=== PATIENT | female | born 1965 | race Caucasian/White ===

== ENCOUNTER 2023-06-08 18:51 | Inpatient (IN) | payer OTHER ==
[2023-06-08] MEDS ORDERED: methylPREDNISolone SOD SUCCIN 1,000 MG in SODIUM CHLORIDE 0.9% 250 ML IVPB STA (19:21)
--- NOTE | 2023-06-08 19:25 | ED ---
General Adult HPI - General Chief complaint: Headache Stated complaint: Jaw pain,Headache, Vision changes Time Seen by Provider: 06/08/23 19:00 Source: patient, RN notes reviewed, old records reviewed Mode of arrival: ambulatory Limitations: no limitations - History of Present Illness Initial comments: 58-year-old female presents for evaluation of headache which is bilateral but worse on the left. Patient had been diagnosed with giant cell arteritis by her boot trimmer Dr. Sheppard, she had an ESR of 1:30 as an outpatient. She received [facility] Thursday of last week 1 g each day according to the patient. She states that this immediately improved all of her symptoms. She states over the weekend her symptoms have worsened again she contacted the boot trimmer office who requested she present to the emergency room for evaluation and further steroid treatment. She has not had biopsy but had symptoms that were highly suggestive of temporal arteritis as well as a ESR greater than 100. She had jaw claudication, vision loss in and severe temporal headache. She also had bilateral upper extremity weakness many of these symptoms have been ongoing for some time. - Related Data Home Medications Medication Instructions Recorded Confirmed Dextroamphetamine/Amphetamine 60 mg PO DAILY 06/03/23 06/04/23 [Adderall] LORazepam [Ativan] 0.5 mg PO HS 06/03/23 06/04/23 Metoprolol Tartrate 25 mg PO DAILY 06/03/23 06/04/23 Omeprazole [PriLOSEC] 40 mg PO DAILY 06/03/23 06/04/23 Zolpidem [Ambien] 10 mg PO HS 06/03/23 06/04/23 ondansetron HCL [Ondansetron HCl] 8 mg PO DAILY 06/03/23 06/04/23 Allergies Allergy/AdvReac Type Severity Reaction Status Date / Time gabapentin Allergy Anaphylaxis Verified 06/08/23 19:00 [id number] Reductase Allergy Rash/Hives Verified 06/08/23 19:00 Inhibitor valproic acid [From Depakene] Allergy Anaphylaxis Verified 06/08/23 19:00 Review of Systems ROS Statement: Those systems with pertinent positive or pertinent negative responses have been documented in the HPI. ROS Other: All systems not noted in ROS Statement are negative. Past Medical History Smoking Status: Current some day smoker General Exam Limitations: no limitations General appearance: alert, in no apparent distress Head exam: Present: atraumatic, normocephalic Eye exam: Present: normal appearance, PERRL ENT exam: Present: normal exam Neck exam: Present: normal inspection. Absent: tenderness Respiratory exam: Present: normal lung sounds bilaterally. Absent: respiratory distress Cardiovascular Exam: Present: regular rate, normal rhythm GI/Abdominal exam: Present: soft. Absent: distended, tenderness Extremities exam: Present: normal inspection, normal capillary refill Neurological exam: Present: alert, oriented X3, CN II-XII intact. Absent: motor sensory deficit Psychiatric exam: Present: normal mood, flat affect Skin exam: Present: warm, dry, intact. Absent: cyanosis, diaphoretic Course Vital Signs 06/08/23 18:57 Temperature 98.3 F Pulse Rate 94 Respiratory 18 Rate Blood Pressure 183/122 O2 Sat by Pulse 100 Oximetry Medical Decision Making - Medical Decision Making Was pt. sent in by a medical professional or institution (, PA, CIRCULATION SALES REPRESENTATIVE, urgent care, hospital, or long term...) When possible be specific @ -[Sent In by Dr. Sheppard, ophthalmology Did you speak to anyone other than the patient for history (EMS, parent, family, police, friend...)? What history was obtained from this source @ -No Did you review nursing and triage notes (agree or disagree)? Why? @ -I reviewed and agree with nursing and triage notes Were old charts reviewed (outside hosp., previous admission, EMS record, old EKG, old radiological studies, urgent care reports/EKG's, long term records)? Report findings @ -No old charts were reviewed Differential Diagnosis (chest pain, altered mental status, abdominal pain women, abdominal pain men, vaginal bleeding, weakness, fever, dyspnea, syncope, headache, dizziness, GI bleed, back pain, seizure, CVA, palpatations, mental health, musculoskeletal)? @ -Differential Headache: Migraine, tension, cluster, carbon monoxide, central venous thrombosis, temporal arteritis, acute closure glaucoma, intracranial hemorrhage, mastoiditis, sinusitis, head injury, this is not meant to be an all-inclusive list. EKG interpreted by me (3pts min.). @ -Sinus rhythm rate of 72, LA interval 173, QRS duration 94, QTC [address] segment elevation. X-rays interpreted by me (1pt min.). @ -None done CT interpreted by me (1pt min.). @ -CT brain negative for intracranial hemorrhage or mass effect U/S interpreted by me (1pt. min.). @ -None done What testing was considered but not performed or refused? (CT, X-rays, U/S, labs)? Why? @ -None What meds were considered but not given or refused? Why? @ -None Did you discuss the management of the patient with other professionals (professionals i.e. , PA, CIRCULATION SALES REPRESENTATIVE, lab, RT, psych nurse, healthcare social worker, nonfarm animal caretaker, teacher, neighborhood conservation officer, gearcase assembler)? Give summary @ -Case discussed with Dr. Mcdowell Was smoking cessation discussed for >3mins.? @ -No Was critical care preformed (if so, how long)? @ -No Were there social determinants of health that impacted care today? How? (Homelessness, low income, unemployed, alcoholism, drug addiction, transportation, low edu. Level, literacy, decrease access to med. care, correction, rehab)? @ -No Was there de-escalation of care discussed even if they declined (Discuss DNR or withdrawal of care, Hospice)? DNR status @ -No What co-morbidities impacted this encounter? (DM, HTN, Smoking, COPD, CAD, Can cer, CVA, ARF, Chemo, Hep., AIDS, mental health diagnosis, sleep apnea, morbid obesity)? @ -Hypertension Was patient admitted / discharged? Hospital course, mention meds given and route, prescriptions, significant lab abnormalities, going to OR and other pertinent info. @ 58-year-old female presenting for evaluation of temporal headache, jaw claudication, concern for temporal arteritis. Patient had been treated as an outpatient with high-dose IV steroids and had complete resolution in her symptoms and then began to have rebound symptoms over the past 3 days. She was sent in by her boot trimmer for continued IV steroids. I did repeat laboratory tests including CBC, CMP, CRP, ESR. Results are pending. High-dose steroids are initiated emergency department. She'll be admitted to internal medicine with vascular surgery on consult for evaluation. Undiagnosed new problem with uncertain prognosis? @ -No Drug Therapy requiring intensive monitoring for toxicity (Heparin, Nitro, Insulin, Cardizem)? @ -No Were any procedures done? @ -No Diagnosis/symptom? @ -[Headache, concern for temporal arteritis Acute, or Chronic, or Acute on Chronic? @ -Chronic Uncomplicated (without systemic symptoms) or Complicated (systemic symptoms)? @ -default Side effects of treatment? @ -No Exacerbation, Progression, or Severe Exacerbation? @ -No Poses a threat to life or bodily function? How? (Chest pain, [place], [place], pneumonia, PE, COPD, DKA, ARF, appy, cholecystitis, CVA, Diverticulitis, Homicidal, Suicidal, threat to staff... and all critical care pts) @ -[Yes, vision loss - Lab Data Result diagrams: 06/08/23 19:36 Lab Results 06/08/23 Range/Units 19:36 WBC 7.8 (3.8-10.6) k/uL RBC 4.71 (3.80-5.40) m/uL Hgb 14.6 (11.4-16.0) gm/dL Hct 44.1 (34.0-46.0) % MCV 93.7 (80.0-100.0) fL MCH 31.0 (25.0-35.0) pg MCHC 33.0 (31.0-37.0) g/dL RDW 11.6 (11.5-15.5) % Plt Count 305 (150-450) k/uL MPV 6.9 Neutrophils % 54 % Lymphocytes % 36 % Monocytes % 3 % Eosinophils % 5 % Basophils % 0 % Neutrophils # 4.2 (1.3-7.7) k/uL Lymphocytes # 2.8 (1.0-4.8) k/uL Monocytes # 0.3 (0-1.0) k/uL Eosinophils # 0.4 (0-0.7) k/uL Basophils # 0.0 (0-0.2) k/uL Disposition Clinical Impression: Headache, Temporal arteritis Disposition: ADMITTED IP TO THIS HOSP Condition: Stable Is patient prescribed a controlled substance at d/c from ED?: No Referrals: None,Stated [Primary Care Provider] - 1-2 days Time of Disposition: 20:22
[2023-06-08] MEDS: SODIUM CHLORIDE 0.9% 1,000 ML IV SCH (20:01)
--- NOTE | 2023-06-08 20:01 | CT ---
EXAMINATION TYPE: CT brain wo con CT DLP: 1126.4 mGycm, Automated exposure control for dose reduction was used. DATE OF EXAM: 06/08/2023 7:52 PM COMPARISON: None. CLINICAL INDICATION:Female, 58 years old with history of Neuro deficit, acute, stroke suspected, head ache, vision changes, jaw pain and difficulty speaking TECHNIQUE: Brain: Axial CT images of the brain were obtained with coronal and sagittal reformats created and rev iewed. Contrast used: None. Oral contrast used: None. FINDINGS: Brain: Extra-axial spaces: No abnormal extra-axial fluid collections. Ventricular system: Within normal limits Cerebral parenchyma: No acute intraparenchymal hemorrhage or mass effect. The marroquin-white junction is well differentiated. Cerebellum: Unremarkable. Mass effect: No evidence of midline shift. Intracranial vasculature: unremarkable Soft tissues: Normal. Calvarium/osseous structures: No depressed skull fracture. Paranasal sinuses and mastoid air cells: Mild scattered paranasal sinus disease. Visualized orbits: Orbital contents are intact. IMPRESSION: No acute intracranial process.
[2023-06-08 20:17] LABS: Basophils % (A) 0 %; Eosinophils # (A) 0.4 k/uL (0-0.7); Eosinophils % (A) 5 %; HCT 44.1 % (34.0-46.0); HGB 14.6 gm/dL (11.4-16.0); Lymphocytes # (A) 2.8 k/uL (1.0-4.8); Lymphocytes % (A) 36 %; MCV 93.7 fL (80.0-100.0); Mean Platelet Volume 6.9; Monocytes # (A) 0.3 k/uL (0-1.0); Monocytes % (A) 3 %; Neutrophils # (A) 4.2 k/uL (1.3-7.7); Neutrophils % (A) 54 %; Platelet Count 305 k/uL (150-450); RBC 4.71 m/uL (3.80-5.40); RDW 11.6 % (11.5-15.5); WBC 7.8 k/uL (3.8-10.6)
[2023-06-08] MEDS ORDERED: NALOXONE 0.4 MG/ML 1 ML VIAL IV PRN (20:18)
[2023-06-08] MEDS ORDERED: ACETAMINOPHEN TAB 325 MG TAB PO PRN (20:18)
[2023-06-08 20:23] LABS: INR 0.9 (<1.2); Partial Thromboplastin Time 23.7 sec (22.0-30.0); Prothrombin Time 9.8 sec (10.0-12.5)
[2023-06-08 21:38] LABS: ALT 23 U/L (4-34); AST 21 U/L (14-36); African American GFR (CKD) >90 (>60 ml/min/1.73 sqM); Albumin 3.4 g/dL (3.5-5.0); Alkaline Phosphatase 69 U/L (38-126); Blood Urea Nitrogen 18 mg/dL (7-17); C Reactive Protein <0.5 mg/dL (<1.0); Calcium 8.9 mg/dL (8.4-10.2); Carbon Dioxide 25 mmol/L (22-30); Creatine Kinase 29 U/L (30-135); Glucose 85 mg/dL (74-99); Non-African American GFR(CKD) >90 (>60 ml/min/1.73 sqM); Total Bilirubin 0.4 mg/dL (0.2-1.3); Total Protein 5.6 g/dL (6.3-8.2)
[2023-06-08 21:48] LABS: Anion Gap 6 mmol/L; Chloride 105 mmol/L (98-107); Potassium 3.5 mmol/L (3.5-5.1); Sodium 136 mmol/L (137-145)
--- NOTE | 2023-06-08 22:59 | P.HPIM ---
History of Present Illness H&P Date: 06/08/23 Patient is a 58-year-old female with a PMH of fibromyalgia, Raynaud's disease, cataracts, cervical DJD with spinal stenosis, chronic left lower extremity weakness following left knee and hip arthroplasties, who presents to the emergency room with complaints of left temporal headache, diffuse muscle weakness, jaw claudication, and intermittent right-sided vision loss. Patient reports being told she may have giant cell arteritis 7-8 years ago due to "large blood vessels". Reports having gradually worsening jaw claudication since that time for which she has been following with collator operator with initial suspicion of lupus. She was following with ophthalmology for scheduled cataract surgery when she expressed symptoms of left temporal headache, diffuse weakness and myalgias, and intermittent right vision loss for the past 1 month. She was presumptively diagnosed with temporal arteritis and was started on a course of high-dose IV steroids with Solu-Medrol 1 g daily for 3 days starting this past Thursday. She reports an intermediate and dramatic improvement in her symptoms following the steroid infusion. The patient finished the course and did not switch to oral prednisone as she reports not being told that she had to take it. As per the ophthalmology documentation however, the patient was scheduled to be transitioned to oral prednisone daily following completion of the IV course. She reports a complete relapse of all of her symptoms including right vision loss occurring several times a day for a few minutes at a time, severe left sided temporal headache 9 out of 10 constantly radiating throughout the head, jaw claudication, and diffuse myalgias and weakness. Patient does not recall if she was scheduled to undergo a temporal artery biopsy. CT brain in the emergency room was unremarkable. EKG revealed sinus rhythm at [address]/T-wave changes noted as reviewed by me. Laboratory evaluation revealed sodium 136, CRP less than 0.5, and albumin 3.4. ED documentation reviewed and case discussed with ED provider. Review of systems: Pertinent positives and negatives as discussed in HPI, a complete review of systems was performed and all other systems are negative. Physical examination: Vital signs reviewed General: non toxic, no distress, appears at stated age, normal weight Derm: no unusual rashes/lesions, warm Head: atraumatic, normocephalic, symmetric, L temporal tenderness noted Eyes: EOMI, no lid lag, anicteric sclera, pupils equal round reactive to light ENT: Nose and ears atraumatic Neck: No cervical lymphadenopathy, trachea midline, supple Mouth: no lip lesion, mucus membranes moist Cardiovascular: S1S2 reg, no murmur, positive dorsalis pedis pulse bilateral, no edema Lungs: CTA bilateral, no rhonchi, no rales, no accessory muscle use Abdominal: soft, nontender to palpation, no guarding Ext: muscle strength 4/5 RUE, strength 5/5 LUE, strength 4/5 RLE, strength 3/5 LLE, no gross muscle atrophy, no contractures Neuro: CN II-XI grossly intact, no gross focal neuro deficits Psych: Alert, oriented, appropriate affect Assessment: Suspected temporal arteritis Chronic conditions: fibromyalgia, Raynaud's disease, cataracts, cervical DJD with spinal stenosis, chronic left lower extremity weakness following left knee and hip arthroplasties Imaging: CT brain in the emergency room was unremarkable. EKG revealed sinus rhythm at [address]/T-wave changes noted as reviewed by me. Data Review: Laboratory evaluation revealed sodium 136, CRP less than 0.5, and albumin 3.4. Plan: Continue patient with Solu-Medrol 1 g daily for 3 days with plans to transition to oral prednisone Vascular surgery consulted for temporal artery biopsy Consult rheumatology and ophthalmology F/u ESR Neurochecks DVT prophylaxis: Lovenox Subq The patient is admitted with an anticipated greater than 2 midnight stay for evaluation of suspected temporal arteritis CODE STATUS: Full Code Discussed with: Patient Anticipated discharge place: Home Past Medical History Smoking Status: Current some day smoker Medications and Allergies Home Medications Medication Instructions Recorded Confirmed Type Dextroamphetamine/Amphetamine 30 mg PO BID 06/03/23 06/08/23 History [Adderall] LORazepam [Ativan] 0.5 mg PO TID 06/03/23 06/08/23 History Omeprazole [PriLOSEC] 40 mg PO DAILY 06/03/23 06/08/23 History Zolpidem [Ambien] 5 - 10 mg PO HS PRN 06/03/23 06/08/23 History ondansetron HCL [Ondansetron HCl] 8 mg PO TID PRN 06/03/23 06/08/23 History Diclofenac Sodium [Diclofenac 1 applic TOPICAL QID PRN 06/08/23 06/08/23 History Sodium 1%] Ketorolac [Toradol] 10 mg PO Q4H PRN 06/08/23 06/08/23 History Magnesium 250 mg PO DAILY PRN 06/08/23 06/08/23 History Metoprolol Succinate [Metoprolol 25 mg PO DAILY 06/08/23 06/08/23 History Succinate ER] Multivit-Min/Iron/Folic/Lutein 1 tab PO DAILY 06/08/23 06/08/23 History [Centrum Silver Women Tablet] Vortioxetine Hydrobromide 10 mg PO HS 06/08/23 06/08/23 History [Trintellix] cycloSPORINE 0.05% OPHTH SOLN 1 applicator BOTH EYES Q12H 06/08/23 06/08/23 History [Restasis] Allergies Allergy/AdvReac Type Severity Reaction Status Date / Time gabapentin Allergy Anaphylaxis Verified 06/08/23 21:10 [id number] Reductase Allergy Rash/Hives Verified 06/08/23 21:10 Inhibitor valproic acid [From Depakene] Allergy Anaphylaxis Verified 06/08/23 21:10 Physical Exam Vitals: Vital Signs Temp Pulse Resp BP Pulse Ox 06/08/23 22:30 127/74 06/08/23 22:15 75 22 121/81 06/08/23 22:00 77 22 119/76 06/08/23 21:45 70 22 123/77 06/08/23 21:30 68 19 125/80 06/08/23 21:15 67 18 124/81 06/08/23 21:00 75 18 141/87 06/08/23 20:45 64 21 169/112 06/08/23 20:30 84 17 167/111 06/08/23 20:15 80 18 162/107 06/08/23 19:45 163/116 06/08/23 19:30 81 20 180/104 06/08/23 19:15 95 18 179/118 06/08/23 19:11 92 20 06/08/23 18:57 98.3 F 94 18 183/122 100 Intake and Output 06/08/23 06/08/23 06/08/23 06:59 14:59 22:59 Other: Weight 58.967 kg Results CBC & Chem 7: 06/08/23 19:36 06/08/23 20:42 Labs: Abnormal Lab Results - Last 24 Hours (Table) 06/08/23 06/08/23 Range/Units 19:36 20:42 PT 9.8 L (10.0-12.5) sec Sodium 136 L (137-145) mmol/L BUN 18 H (7-17) mg/dL Creatine Kinase 29 L (30-135) U/L Total Protein 5.6 L (6.3-8.2) g/dL Albumin 3.4 L (3.5-5.0) g/dL
[2023-06-09] MEDS: HYDROmorphone 0.5 MG/0.5 ML SYRINGE IVP PRN ×5 (03:38→20:41)
[2023-06-09 04:11] LABS: Erythrocyte Sedimentation Rate 6 mm/Hr (0-30)
[2023-06-09] MEDS: NON FORMULARY DRUG (Dextroamphetamine/Amphetamine [Adderall] 30 MG Tablet) PO SCH ×2 (08:10→20:44)
[2023-06-09] MEDS: METOPROLOL SUCCINATE (ER) 25 MG TAB.ER.24H PO SCH (08:26)
[2023-06-09] MEDS: cycloSPORINE 0.05% OPHTH 0.4 ML DROPERETTE BOTH EYES SCH ×2 (08:27→20:43)
[2023-06-09] MEDS: LORazepam 0.5 MG TAB PO SCH ×3 (08:27→21:59)
[2023-06-09] MEDS: SODIUM CHLORIDE 0.9% 1,000 ML IV SCH ×2 (08:27→22:02)
[2023-06-09] MEDS: MULTIVITAMINS, THERA 1 EACH TAB PO SCH (08:27)
--- NOTE | 2023-06-09 08:54 | P.GSCN ---
History of Present Illness Consult date: 06/09/23 Reason for Consult: Temporal headache Requesting physician: Kyree Arriola History of present illness: C 58-year-old female with a past medical history including fibromyalgia, Raynaud's, TIA, cataract disease, degenerative disc disease, prior orthopedic surgery of the left lower extremity with chronic lower extremity weakness who presented to the emergency department advised by her special events driver. She has multiple complaints which states that she has had jaw pain for the past 6 years, vision changes supposed to undergo cataract surgery but has also been having right eye visual changes where she feels that there is a shade coming down over right eye which lasts 15-20 minutes. She reports neck pain, decreased motor skills bilateral upper and lower extremity reports recent shoulder and neck pain and injury with moving. She also states she has a history of TIAs that she states they told her risks related to her neck issues. She states that at times she has speech deficits we are she can't get out what she is saying, she also reports headache over the left eye and behind the eye where she states there is pressure and it feels like her eyes can of pop out. Also complains of balance issues and uses a rolling walker. She had a CT of the brain in the emergency department that was unremarkable, no acute findings. EKG revealed normal sinus rhythm. Labs were unremarkable. She reports having suspected temporal arteritis and had an elevated sed rate of greater than 1:30 on 06/03/2023. She was treated with Solu-Medrol 1 g IV infusion Thursday, Thursday, and Thursday. States within 30 minutes she felt relief of pressure and headache, states weakness improved and she was feeling much better. Yesterday however she did not receive any steroids and felt all her symptoms return. She called her special events driver who had advised her to come in for further evaluation. Patient denies any chest pain, shortness of breath, no visual change at this time, does have headache behind her left eye, chronic jaw pain, and generalized bilateral upper or lower extremity weakness. Review of Systems A 14 point review systems was completed all pertinent positives and negatives as stated in the HPI. Past Medical History Smoking Status: Current some day smoker Medications and Allergies Home Medications Medication Instructions Recorded Confirmed Type Dextroamphetamine/Amphetamine 30 mg PO BID 06/03/23 06/08/23 History [Adderall] LORazepam [Ativan] 0.5 mg PO TID 06/03/23 06/08/23 History Omeprazole [PriLOSEC] 40 mg PO DAILY 06/03/23 06/08/23 History Zolpidem [Ambien] 5 - 10 mg PO HS PRN 06/03/23 06/08/23 History ondansetron HCL [Ondansetron HCl] 8 mg PO TID PRN 06/03/23 06/08/23 History Diclofenac Sodium [Diclofenac 1 applic TOPICAL QID PRN 06/08/23 06/08/23 History Sodium 1%] Ketorolac [Toradol] 10 mg PO Q4H PRN 06/08/23 06/08/23 History Magnesium 250 mg PO DAILY PRN 06/08/23 06/08/23 History Metoprolol Succinate [Metoprolol 25 mg PO DAILY 06/08/23 06/08/23 History Succinate ER] Multivit-Min/Iron/Folic/Lutein 1 tab PO DAILY 06/08/23 06/08/23 History [Centrum Silver Women Tablet] Vortioxetine Hydrobromide 10 mg PO HS 06/08/23 06/08/23 History [Trintellix] cycloSPORINE 0.05% OPHTH SOLN 1 applicator BOTH EYES Q12H 06/08/23 06/08/23 History [Restasis] Allergies Allergy/AdvReac Type Severity Reaction Status Date / Time gabapentin Allergy Anaphylaxis Verified 06/08/23 21:10 [id number]-LfF Reductase Allergy Rash/Hives Verified 06/08/23 21:10 Inhibitor valproic acid [From Depakene] Allergy Anaphylaxis Verified 06/08/23 21:10 Surgical - Exam Vital Signs Temp Pulse Resp BP Pulse Ox 98.3 F 94 18 183/122 100 06/08/23 18:57 06/08/23 18:57 06/08/23 18:57 06/08/23 18:57 06/08/23 18:57 General appearance: The patient is alert, oriented, appears in no acute distress. HET: Head is normocephalic and atraumatic. Pupils are equal and reactive. Neck: Supple. Heart: Regular. Lungs: Equal expansion, normal respiratory effort. Abdomen: Soft, nontender, nondistended. Extremities: Normal skin color and turgor. Palpable radial and pedal pulses. Neurological: Alert and oriented 3. Speech is fluent, patient answers questions appropriately and follows commands, she has facial symmetry. Some bilateral upper and lower extremity weakness with good tone and motor skills. Results - Labs 06/08/23 19:36 06/08/23 20:42 Abnormal Lab Results - Last 24 Hours (Table) 06/08/23 06/08/23 Range/Units 19:36 20:42 PT 9.8 L (10.0-12.5) sec Sodium 136 L (137-145) mmol/L BUN 18 H (7-17) mg/dL Creatine Kinase 29 L (30-135) U/L Total Protein 5.6 L (6.3-8.2) g/dL Albumin 3.4 L (3.5-5.0) g/dL Diabetes panel 06/08/23 Range/Units 20:42 Sodium 136 L (137-145) mmol/L Potassium 3.5 (3.5-5.1) mmol/L Chloride 105 (98-107) mmol/L Carbon Dioxide 25 (22-30) mmol/L BUN 18 H (7-17) mg/dL Creatinine 0.71 (0.52-1.04) mg/dL Glucose 85 (74-99) mg/dL Calcium 8.9 (8.4-10.2) mg/dL AST 21 (14-36) U/L ALT 23 (4-34) U/L Alkaline Phosphatase 69 (38-126) U/L Total Protein 5.6 L (6.3-8.2) g/dL Albumin 3.4 L (3.5-5.0) g/dL Calcium panel 06/08/23 Range/Units 20:42 Calcium 8.9 (8.4-10.2) mg/dL Albumin 3.4 L (3.5-5.0) g/dL Pituitary panel 06/08/23 Range/Units 20:42 Sodium 136 L (137-145) mmol/L Potassium 3.5 (3.5-5.1) mmol/L Chloride 105 (98-107) mmol/L Carbon Dioxide 25 (22-30) mmol/L BUN 18 H (7-17) mg/dL Creatinine 0.71 (0.52-1.04) mg/dL Glucose 85 (74-99) mg/dL Calcium 8.9 (8.4-10.2) mg/dL Adrenal panel 06/08/23 Range/Units 20:42 Sodium 136 L (137-145) mmol/L Potassium 3.5 (3.5-5.1) mmol/L Chloride 105 (98-107) mmol/L Carbon Dioxide 25 (22-30) mmol/L BUN 18 H (7-17) mg/dL Creatinine 0.71 (0.52-1.04) mg/dL Glucose 85 (74-99) mg/dL Calcium 8.9 (8.4-10.2) mg/dL Total Bilirubin 0.4 (0.2-1.3) mg/dL AST 21 (14-36) U/L ALT 23 (4-34) U/L Alkaline Phosphatase 69 (38-126) U/L Total Protein 5.6 L (6.3-8.2) g/dL Albumin 3.4 L (3.5-5.0) g/dL - Imaging Comments: Brain CT. No acute intracranial process. Assessment and Plan Assessment: 1. Headache 2. Right eye visual changes 3. Chronic Generalized upper and lower extremity weakness 4. Chronic jaw pain 5. Fibro-myalgia 6. Degenerative disc disease 7. Raynaud's disease 8. Cataracts Plan: 1. Carotid duplex ordered 2. Neurology consulted, appreciate their recommendations 3. Await recommendations from ophthalmology and rheumatology 4. Further recommendations forthcoming based on clinical course Thank you for this consultation, we will continue to follow. The impression and plan of care has been dictated as directed. I performed a history and examination of this patient, discussed the same with the dictator. I agree with the dictator's note ,documented as a scribe. Any additional findings or plans will be noted.
--- NOTE | 2023-06-09 10:25 | US ---
EXAMINATION TYPE: US carotid duplex BILAT DATE OF EXAM: 06/09/2023 COMPARISON: NONE CLINICAL INDICATION: Female, 58 years old with history of TIAs, visual changes; Shade over right eye that lasts for 20 minutes at a time. 4 days post transfusion for optic neuropathy and arthritis. Yana re jaw pain and headaches x 6-7 years. Patient denies any other signs and symptoms. TECHNIQUE: Carotid duplex ultrasound examination. Indirect Doppler criteria was utilized. FINDINGS: EXAM MEASUREMENTS: RIGHT: Peak Systolic Velocity (PSV) cm/sec ----- Right CCA: 88.6 ----- Right ICA: 75.2 ----- Right ECA: 87.8 ICA/CCA ratio: 0.8 RIGHT: End Diastole cm/sec ----- Right CCA: 24.8 ----- Right ICA: 27.6 ----- Right ECA: 13.1 LEFT: Peak Systolic Velocity (PSV) cm/sec ----- Left CCA: 72.2 ----- Left ICA: 90.1 ----- Left ECA: 76.5 ICA/CCA ratio: 1.2 LEFT: End Diastole cm/sec ----- Left CCA: 20.3 ----- Left ICA: 35.7 ----- Left ECA: 12.8 VERTEBRALS (direction of flow): Right Vertebral: Antegrade Left Vertebral: Antegrade Rhythm: Normal WAFER FAB TECHNICIAN NOTES: No identifiable plaque, waveform irregularities, abnormal velocities, or stenosis. IMPRESSION: Less than 50% stenosis of the bilateral carotid bifurcations. Criteria for Assigning % of Stenosis / Diameter reduction (Estimation based on the indirect measurements of the internal carotid artery velocities (ICA PSV). 1. Normal (no stenosis)=ICA PSV < 125 cm/s: ratio < 2.0: ICA EDV<40 cm/s. 2. Less than 50% stenosis=ICA PSV < 125 cm/s: ratio < 2.0: ICA EDV<40 cm/s. 3. 50 to 69% stenosis=ICA PSV of 125 to 230 cm/s: ration 2.0 ? 4.0: ICA EDV 40-100 cm/s. 4. Greater than 70% stenosis to near occlusion= ICA PSV > 230 cm/s: ratio > 4.0: ICA EDV > 100 cm/s. 5. Near occlusion= ICA PSV velocities may be low or undetectable: variable ratio and ICA EDV. 6. Total occlusion=unable to detect flow.
[2023-06-09 12:25] LABS: Creatine Kinase 27 U/L (30-135)
--- NOTE | 2023-06-09 13:23 | P.CNNES ---
History of Present Illness Consult date: 06/09/23 Requesting physician: Swapna Freeman Reason for Consult: headache, visual changes, weakness History of Present Illness: This is a 58-year-old woman with history of Raynaud's, fibromyalgia, cataract disease who presents emergency department because of headache, visual date changes, jaw pain. Patient's is tangential on providing the history. She stated that she's been having jaw pain bilaterally for the last 6 years but progressively getting worse in the last 6 weeks and that in the last 6 weeks she noticed that she's having left frontal headache with stiffening of the neck and diffuse head pain and the headache was unbearable more than a 10 and she noticed that her vision was blurry and she could not see as if according came down on the right eye for the last 6 weeks and because of the jaw pain she had diffi culty talking and she had photophobia again the headache was unbearable more than a 10 upon asking her the description of the headache she stated that it's everything as in throbbing dull sharp no radiation it's all over and was intermittent on and off there is no alleviation or aggravation she felt her left eye is about to pop out. On 06/03/2023 her ESR was more than 1:30. She stated that the she was evaluated by Dr. hinds configuration specialist and it was felt that she had temporal arteritis since the ESR was elevated and she was placed on IV SOLU- MEDROL FOR 3 DAYS AND SHE FELL DRASTIC IMPROVEMENT IN HER LAST DOSE WAS THURSDAY THAT JUST PAST BY. But then Thursday she had symptoms back again. I spoke with a vascular surgery and PE and she stated that that he notified them that that she followed up with navy material inspector as well. Patient notified me that she was in the process of seeing the neurologist as an outpatient. Rarely she states the headache is 6-7 out of 10. She stated in the past she thought she would had cataract but because of the changes in her condition was felt she had temporal arteritis possible and that's why she got destroyed by her configuration specialist Some of the workup during his hospital visit consisted of Most recent ESR is 6. CBC with differential is unremarkable CK level is 29 and a repeat is 27 CRP is less than 0.5 Calcium is 8.9, serum glucose is 85, sodium is 136. CT of the head is reported as no acute intracranial process. I personally reviewed the CT of the head and I agree with the report. Carotid duplex is reported as less than 50% stenosis of bilateral carotid bifurcation. Review of Systems The positive and negative as per HPI. Past Medical History Smoking Status: Current some day smoker Medications and Allergies Home Medications Medication Instructions Recorded Confirmed Type Dextroamphetamine/Amphetamine 30 mg PO BID 06/03/23 06/08/23 History [Adderall] LORazepam [Ativan] 0.5 mg PO TID 06/03/23 06/08/23 History Omeprazole [PriLOSEC] 40 mg PO DAILY 06/03/23 06/08/23 History Zolpidem [Ambien] 5 - 10 mg PO HS PRN 06/03/23 06/08/23 History ondansetron HCL [Ondansetron HCl] 8 mg PO TID PRN 06/03/23 06/08/23 History Diclofenac Sodium [Diclofenac 1 applic TOPICAL QID PRN 06/08/23 06/08/23 History Sodium 1%] Ketorolac [Toradol] 10 mg PO Q4H PRN 06/08/23 06/08/23 History Magnesium 250 mg PO DAILY PRN 06/08/23 06/08/23 History Metoprolol Succinate [Metoprolol 25 mg PO DAILY 06/08/23 06/08/23 History Succinate ER] Multivit-Min/Iron/Folic/Lutein 1 tab PO DAILY 06/08/23 06/08/23 History [Centrum Silver Women Tablet] Vortioxetine Hydrobromide 10 mg PO HS 06/08/23 06/08/23 History [Trintellix] cycloSPORINE 0.05% OPHTH SOLN 1 applicator BOTH EYES Q12H 06/08/23 06/08/23 History [Restasis] Allergies Allergy/AdvReac Type Severity Reaction Status Date / Time gabapentin Allergy Anaphylaxis Verified 06/08/23 21:10 [id number] Reductase Allergy Rash/Hives Verified 06/08/23 21:10 Inhibitor valproic acid [From Depakene] Allergy Anaphylaxis Verified 06/08/23 21:10 Physical Examination - Vital Signs Vital Signs: Vital Signs Temp Pulse Resp BP Pulse Ox 06/09/23 06:04 97.3 F L 56 L 17 121/80 06/09/23 03:42 64 17 121/68 06/09/23 00:54 67 17 111/73 06/08/23 22:30 127/74 06/08/23 22:15 75 22 121/81 06/08/23 22:00 77 22 119/76 06/08/23 21:45 70 22 123/77 06/08/23 21:30 68 19 125/80 06/08/23 21:15 67 18 124/81 06/08/23 21:00 75 18 141/87 06/08/23 20:45 64 21 169/112 06/08/23 20:30 84 17 167/111 06/08/23 20:15 80 18 162/107 06/08/23 19:45 163/116 06/08/23 19:30 81 20 180/104 06/08/23 19:15 95 18 179/118 06/08/23 19:11 92 20 06/08/23 18:57 98.3 F 94 18 183/122 100 Intake and Output 06/08/23 06/09/23 06/09/23 22:59 06:59 14:59 Other: Weight 58.967 kg GENERAL: The patient is lying in bed and is not in acute distress. NEUROLOGICAL: Higher mental function: The patient is awake, alert, oriented to self, place and time. Patient is following commands. No aphasia and no neglect. Cranial nerves: The pupils are round, equal and reactive to light and accommodation. Visual sexton are full to confrontation throughout. Extraocular movement is intact no nystagmus is noted. Facial sensation is normal to touch throughout. The facial strength is normal throughout. Hearing is normal bilaterally to hand rub. Tongue is midline and moved [id number] without any difficulty. No dysarthria is noted. Shoulder shrug is normal bilaterally. Motor: The strength is 5 over 5 throughout uppers and right lower is 5/5. Left lower is deferred because of chronic left hip and knee pain. Normal tone and bulk. Cerebellum: Normal finger to nose bilaterally. Sensation: Sensation is inconsistent at times she feels its sap functional analyst touch on the right than the left but again it was inconsistent upon examination Reflexes (right/left): 2 positive throughout Plantars are downgoing bilaterally. Results - Laboratory Findings CBC and BMP: 06/08/23 19:36 06/08/23 20:42 Abnormal Lab Findings: Abnormal Labs 10/06/08/23 06/09/23 19:36 20:42 11:31 PT 9.8 L Sodium 136 L BUN 18 H Creatine Kinase 29 L 27 L Total Protein 5.6 L Albumin 3.4 L TSH 0.266 L Assessment and Plan Assessment: This is a 58-year-old woman with history of Raynaud's, fibromyalgia, cataract, who has been having jaw pain bilaterally for the last 6 years but worse in the last 6 weeks associate with the vision changes nausea. On 06/03/2023 the areas are was more than 130 and she was given IV Solu-Medrol for 3 days and she had drastic improvement in the last dose was this past Thursday but on Thursday she had dowel worsening of her headache and visual disturbance. Most recent ESR is normal as well as CRP is normal. Patient is tangential on providing history. Headache with visual disturbance rule out temporal arteritis. Most recent ESR CRP is normal. Prior ESR was 130 and has received IV steroids. Unsure if there is other condition contributing to her elevated ESR besides temporal arteritis History of jaw pain for the last 6 years. History of Raynaud's History of fibromyalgia History a chronic history of left hip and knee pain History of Osteoarthritis Plan: I ordered MRI of the brain with and without as well as MRA of the head Ordered TSH, vitamin B12, folate. I spoke with the primary team and I agree with pursuing a day, ankle, aldolase level, rheumatoid factor Vascular surgery is on board for possible temporal artery biopsy Ophthalmology team and the rheumatology team are consulted We'll defer the rest of the medical measure the primary team The plan was discussed with the patient, vascular surgery N.P. and the primary attending Thank you for the consultation Time with Patient: Greater than 30
[2023-06-09 13:46] LABS: T4, Free (Free Thyroxine) 1.08 ng/dL (0.78-2.19)
[2023-06-09 17:07] LABS: Rheumatoid Factor, Qnt <15 IU/mL (0-15)
[2023-06-09] MEDS: NICOTINE 14MG/24HR PATCH TRANSDERM SCH (17:24)
[2023-06-09] MEDS ORDERED: methylPREDNISolone SOD SUCCIN 1,000 MG in SODIUM CHLORIDE 0.9% 250 ML IVPB SCH (19:00)
--- NOTE | 2023-06-09 19:13 | P.PN ---
Subjective Progress Note Date: 06/09/23 (delayed charting seen at 1130) Patient is a 58-year-old female recently diagnosed with temporal arteritis who received 3 doses of Solu-Medrol 1000 milligrams IV piggyback on 03/03 through 03/05, fibromyalgia, rhinoscopy disease, cataracts, spinal stenosis, and multiple other comorbid conditions who presented to the ER with complaint of headache, diffuse muscle weakness, jaw pain, and intermittent visual changes. She was sent in by Dr. Sheppard after she had recurrence of some of her symptoms after completion Solu-Medrol. In the ER she underwent an extensive evaluation. She was hypertensive on arrival with a blood pressure 183/122. Laboratory analysis included CBC, coags, and CMP all of which were unremarkable. Arrangements were made for admission with consultation to vascular surgery, rheumatology, and ophthalmology. She was started on Solu-Medrol thousand milligrams IV piggyback. Patient seen and examined at bedside. She reports that she is frustrated as she received 1 dose of Solu-Medrol the ER and she continues to have symptoms. However her symptoms are rather unusual. She does report that she has had jaw pain for many years, as well as some persistent headaches. She is now describing that her visual disturbances are difficulty with depth perception and focus but not having a shaking come over her eyes as they were previously. She is also stating that her symptoms did not improve the describing the symptoms as each difficulties, difficulty with cognition, difficulty with sleep, and difficulty with ADHD. She reports that last time she was seen Solu-Medrol all of these improved. I explained to here that those symptoms are not typical of temporal arteritis (poor cognition, poor sleep, difficult with concentration). It is very difficult to obtain an adequate history she is tangential and jumps back and forth between things that happened now, years in the past, and just prior to her initial outpatient treatment with Solu-Medrol. Vital signs reviewed General: nontoxic, no distress, appears at stated age Cardiovascular: S1S2 reg, no murmur, positive posterior tibial pulse bilateral, Lungs: CTA bilateral, no rhonchi, no rales , no accessory muscle use Abdominal: soft, nontender to palpation, no guarding, no appreciable organomegaly Ext: no gross muscle atrophy, no edema b/l lower extremities, no contractures Neuro: CN II-XI grossly intact, no focal neuro deficits Psych: Alert, oriented, appropriate affect Assessment/Plan: Headache, visual disturbance, difficulty with concentration -Case discussed with neurology. We'll proceed with MRI brain with and without contrast as well as MRI of the head -Check ASA, rheumatoid factor, Anka, aldolase, creatine phosphokinase -Vascular surgery is following if temporal artery biopsy is warranted -Await from ophthalmology and rheumatology consultations -Continue with Solu-Medrol 1000 mg IV piggyback daily -Continue with Dilaudid 0.5 mg IV every 3 hours when necessary pain. Monitor for sedation and decreased respiratory status Chronic: Cataracts Fibromyalgia Raynauds' disease Chronic left lower extremity weakness Spinal stenosis Current Imaging: Carotid Dopplers-no significant hemodynamic stenosis bilaterally Hospital course: CT head: No acute intracranial process Data Review: ESR 6, CRP <0.5 DVT prophylaxis: Heparin Discussed with: Neurology Anticipated discharge date: Pending Clinical Course Anticipated discharge place: Pending Clinical Course This dictation was prepared using [employer] voice recognition software. Though every attempt is made to correct errors during dictation some may still exist. Objective - Vital Signs Vital signs: Vital Signs Temp 97.8 F 06/09/23 15:30 Pulse 105 H 06/09/23 15:30 Resp 20 06/09/23 15:30 BP 116/75 06/09/23 15:30 Pulse Ox 98 06/09/23 15:30 FiO2 Intake & Output 06/09/23 06/09/23 06/10/23 06:59 18:59 06:59 Intake Total 180 Balance 180 Weight 58.967 kg Intake: Oral 180 - Labs CBC & Chem 7: 06/08/23 19:36 06/08/23 20:42 Labs: Abnormal Lab Results - Last 24 Hours (Table) 06/08/23 06/08/23 06/09/23 Range/Units 19:36 20:42 11:31 PT 9.8 L (10.0-12.5) sec Sodium 136 L (137-145) mmol/L BUN 18 H (7-17) mg/dL Creatine Kinase 29 L 27 L (30-135) U/L Total Protein 5.6 L (6.3-8.2) g/dL Albumin 3.4 L (3.5-5.0) g/dL TSH 0.266 L (0.465-4.680) mIU/L
[2023-06-09] MEDS: VORTIOXETINE HYDROBROMIDE 20 MG TABLET PO SCH (20:44)
[2023-06-10] MEDS: SODIUM CHLORIDE 0.9% 1,000 ML IV SCH ×2 (03:54→17:39)
[2023-06-10] MEDS: PANTOPRAZOLE 40 MG TABLET PO SCH (06:25)
[2023-06-10] MEDS: HYDROmorphone 0.5 MG/0.5 ML SYRINGE IVP PRN ×4 (06:28→20:55)
[2023-06-10] MEDS: LORazepam 0.5 MG TAB PO SCH ×3 (09:11→20:51)
[2023-06-10] MEDS: NICOTINE 14MG/24HR PATCH TRANSDERM SCH (09:11)
[2023-06-10] MEDS: cycloSPORINE 0.05% OPHTH 0.4 ML DROPERETTE BOTH EYES SCH ×2 (09:11→20:55)
[2023-06-10] MEDS: METOPROLOL SUCCINATE (ER) 25 MG TAB.ER.24H PO SCH (09:11)
[2023-06-10] MEDS: MULTIVITAMINS, THERA 1 EACH TAB PO SCH (09:11)
[2023-06-10] MEDS: NON FORMULARY DRUG (Dextroamphetamine/Amphetamine [Adderall] 30 MG Tablet) PO SCH ×2 (09:12→20:40)
[2023-06-10] MEDS ORDERED: ONDANSETRON 4 MG/2 ML VIAL IVP PRN (10:57)
[2023-06-10 11:12] LABS: HCT 45.6 % (34.0-46.0); HGB 14.5 gm/dL (11.4-16.0); MCH 31.6 pg (25.0-35.0); MCHC 31.8 g/dL (31.0-37.0); Platelet Count 288 k/uL (150-450); RBC 4.59 m/uL (3.80-5.40); RDW 12.1 % (11.5-15.5)
[2023-06-10 11:20] LABS: African American GFR (CKD) >90 (>60 ml/min/1.73 sqM); Anion Gap 10 mmol/L; Blood Urea Nitrogen 20 mg/dL (7-17); Calcium 8.9 mg/dL (8.4-10.2); Carbon Dioxide 19 mmol/L (22-30); Chloride 108 mmol/L (98-107); Glucose 254 mg/dL (74-99); Non-African American GFR(CKD) >90 (>60 ml/min/1.73 sqM); Potassium 4.1 mmol/L (3.5-5.1); Sodium 137 mmol/L (137-145)
[2023-06-10 11:23] LABS: MCV 99.4 fL (80.0-100.0)
--- NOTE | 2023-06-10 11:27 | P.PN ---
Subjective Progress Note Date: 06/10/23 Patient is a 58-year-old female recently diagnosed with temporal arteritis who received 3 doses of Solu-Medrol 1000 milligrams IV piggyback on 03/03 through 03/05, fibromyalgia, rhinoscopy disease, cataracts, spinal stenosis, and multiple other comorbid conditions who presented to the ER with complaint of headache, diffuse muscle weakness, jaw pain, and intermittent visual changes. She was sent in by Dr. Sheppard after she had recurrence of some of her symptoms after completion Solu-Medrol. In the ER she underwent an extensive evaluation. She was hypertensive on arrival with a blood pressure 183/122. Laboratory analysis included CBC, coags, and CMP all of which were unremarkable. Arrangements were made for admission with consultation to vascular surgery, rheumatology, and ophthalmology. She was started on Solu-Medrol thousand milligrams IV piggyback. She is having some pain that just started in her left neck and comes up the left side of her face. It is buring in nature and she is having photophobia. She also reports some nausea. She also complains of jaw pain that sage moved from the outside of her synagogue to the inside of her jaw where she has some adnormal bone growth. She also states that for the last 6-7 years her legs have gotten swolen and tuned purple when she hangs them done. She has not had dopplers done on prior. Vital signs reviewed General: nontoxic, no distress, appears at stated age Cardiovascular: S1S2 reg, no murmur, positive posterior tibial pulse bilateral, Lungs: CTA bilateral, no rhonchi, no rales , no accessory muscle use Abdominal: soft, nontender to palpation, no guarding, no appreciable organomegaly Ext: no gross muscle atrophy, no edema b/l lower extremities, no contractures Neuro: CN II-XI grossly intact, no focal neuro deficits Psych: Alert, oriented, appropriate affect Assessment/Plan: Headache, visual disturbance, difficulty with concentration, myalgias -- concerns for vasculitis -Case discussed with neurology- await MRI and MRA Brain - Out patient ESR prior to steroids was >130, but CRP was less than 0.05 -Check ASA, rheumatoid factor- negative - Await Anca and aldolase - creatinine kinase 27 -Vascular surgery is following if temporal artery biopsy is warranted -Await ophthalmology and rheumatology consultations -Continue with Solu-Medrol 1000 mg IV piggyback daily D # 3 -Continue with Dilaudid 0.5 mg IV every 3 hours when necessary pain. Monitor for sedation and decreased respiratory status Hyperglycemia secondary to high-dose steroids -Start sliding scale insulin - follow BS Chronic: Cataracts Fibromyalgia Raynauds' disease Chronic left lower extremity weakness Spinal stenosis Current Imaging: None new Hospital course: CT head: No acute intracranial process Carotid Doppler-no significant hemodynamic stenosis bilaterally Data Review: Labs reviewed included CBC and basic metabolic profile which are remarkable for white blood cell count 6, chloride 108, carbon dioxide 19, BUN 20, and glucose 254 DVT prophylaxis: Heparin Discussed with: Neurology Anticipated discharge date: Pending Clinical Course Anticipated discharge place: Pending Clinical Course This dictation was prepared using [employer] voice recognition software. Though every attempt is made to correct errors during dictation some may still exist. Objective - Vital Signs Vital signs: Vital Signs Temp 98.2 F 06/09/23 23:58 Pulse 98 06/10/23 08:00 Resp 16 06/10/23 08:00 BP 105/56 06/10/23 08:00 Pulse Ox 96 06/10/23 08:00 FiO2 Intake & Output 06/09/23 06/10/23 06/10/23 18:59 06:59 18:59 Intake Total 180 460 Balance 180 460 Weight 58.967 kg Intake: Oral 180 460 Other: Voiding Method Toilet Toilet # Voids 2 - Labs CBC & Chem 7: 06/10/23 09:40 06/10/23 09:40 Labs: Abnormal Lab Results - Last 24 Hours (Table) 06/09/23 Range/Units 11:31 Creatine Kinase 27 L (30-135) U/L TSH 0.266 L (0.465-4.680) mIU/L
[2023-06-10] MEDS ORDERED: DEXTROSE 50% SYRINGE 50 ML IVP PRN ×2 (11:31)
[2023-06-10] MEDS: CYANOCOBALAMIN 500 MCG TAB PO SCH (12:43)
[2023-06-10] MEDS: INSULIN ASPART (NovoLOG) 100 UNIT/ML VIAL SQ SCH ×3 (12:46→20:54)
[2023-06-10 13:30] VITALS: BMI 23.0
--- NOTE | 2023-06-10 13:33 | P.PN ---
Subjective Progress Note Date: 06/10/23 Principal diagnosis: Headache Patient was seen and examined this morning sitting up. States he is advised yesterday after receiving her steroids did start feeling improvement in her headache, jaw pain and felt that her speech and gait were much improved. She states though then later through the day she felt like she was having side effects from the steroids and states that she broke out in a sweat through the night. She currently denies any visual disturbances, still has some discomfort behind the left eye other than that no complaints at this time. She is scheduled for MRI/MRA of the brain today. Yesterday she underwent a carotid duplex with out any significant stenosis however reporting less than 50% bilateral internal carotid artery stenosis. Objective - Vital Signs Vital signs: Vital Signs Temp 98.2 F 06/09/23 23:58 Pulse 77 06/10/23 04:08 Resp 17 06/10/23 04:08 BP 114/65 06/10/23 04:08 Pulse Ox 96 06/10/23 04:08 FiO2 Intake & Output 06/09/23 06/10/23 06/10/23 18:59 06:59 18:59 Intake Total 180 Balance 180 Weight 58.967 kg Intake: Oral 180 Other: Voiding Method Toilet # Voids 2 - Exam General appearance: The patient is alert, oriented, appears in no acute distress. HET: Head is normocephalic and atraumatic. Pupils are equal and reactive. Neck: Supple. Abdomen: Soft, nondistended. Extremities: Normal skin color and turgor. Neurological: No focal deficits. Alert and oriented 3. - Labs CBC & Chem 7: 06/10/23 09:40 06/10/23 09:40 Labs: Abnormal Lab Results - Last 24 Hours (Table) 06/09/23 Range/Units 11:31 Creatine Kinase 27 L (30-135) U/L TSH 0.266 L (0.465-4.680) mIU/L Assessment and Plan Assessment: 1. Headache 2. Right eye visual changes 3. Chronic Generalized upper and lower extremity weakness 4. Chronic jaw pain 5. Fibro-myalgia 6. Degenerative disc disease 7. Raynaud's disease 8. Cataracts Plan: 1. Carotid duplex ordered and reviewed. No significant stenosis 2. Neurology consulted, appreciate their recommendations 3. Await recommendations from ophthalmology and rheumatology 4. Further recommendations forthcoming based on clinical course Thank you for this consultation, we will continue to follow. The impression and plan of care has been dictated as directed. Dr. Garland I performed a history and examination of this patient, discussed the same with the dictator. I agree with the dictator's note ,documented as a scribe. Any additional findings or plans will be noted.
--- NOTE | 2023-06-10 14:17 | P.PN ---
Subjective Progress Note Date: 06/10/23 I am following-up with patient and she feels about the same. Denies of any new neurological issues. Objective - Vital Signs Vital signs: Vital Signs Temp 98.2 F 06/09/23 23:58 Pulse 98 06/10/23 08:00 Resp 16 06/10/23 08:00 BP 105/56 06/10/23 08:00 Pulse Ox 96 06/10/23 08:00 FiO2 Intake & Output 06/09/23 06/10/23 06/10/23 18:59 06:59 18:59 Intake Total 180 460 Balance 180 460 Weight 58.967 kg 58.967 kg Intake: Oral 180 460 Other: Voiding Method Toilet Toilet # Voids 2 - Exam GENERAL: The patient is lying in bed and is not in acute distress. NEUROLOGICAL: Higher mental function: The patient is awake, alert, oriented to self, place and time. Patient is following commands. No aphasia and no neglect. Cranial nerves: The pupils are round, equal and reactive to light and accommodation. Visual sexton are full to confrontation throughout. Extraocular movement is intact no nystagmus is noted. Facial sensation is normal to touch throughout. The facial strength is normal throughout. Hearing is normal bilaterally to hand rub. Tongue is midline and moved [id number] without any difficulty. No dysarthria is noted. Shoulder shrug is normal bilaterally. Motor: The strength is 5 over 5 throughout uppers and right lower is 5/5. Left lower is deferred because of chronic left hip and knee pain. Normal tone and bulk. Cerebellum: Normal finger to nose bilaterally. Sensation: Sensation is inconsistent at times she feels its planer operator touch on the right than the left but again it was inconsistent upon examination Reflexes (right/left): 2 positive throughout Plantars are downgoing bilaterally. Some of the workup during his hospital visit consisted of Most recent ESR is 6. CBC with differential is unremarkable CK level is 29 and a repeat is 27 CRP is less than 0.5 SH is 0.266, free T4 is 1.08 and the free T4 reflex I is 1.29. Photic B12 was 337 Serum folate is 30.7. Aldolase level is 4.0 COSME is negative Rheumatoid factor was less than 15 Calcium is 8.9, serum glucose is 85, sodium is 136. CT of the head is reported as no acute intracranial process. I personally reviewed the CT of the head and I agree with the report. Carotid duplex is reported as less than 50% stenosis of bilateral carotid bifurcation. - Labs CBC & Chem 7: 06/10/23 09:40 06/10/23 09:40 Labs: Abnormal Lab Results - Last 24 Hours (Table) 06/10/23 06/10/23 Range/Units 09:40 09:40 WBC 16.0 H (3.8-10.6) k/uL Chloride 108 H (98-107) mmol/L Carbon Dioxide 19 L (22-30) mmol/L BUN 20 H (7-17) mg/dL Glucose 254 H (74-99) mg/dL Assessment and Plan Assessment: This is a 58-year-old woman with history of Raynaud's, fibromyalgia, cataract, who has been having jaw pain bilaterally for the last 6 years but worse in the last 6 weeks associate with the vision changes nausea. On 06/03/2023 the areas are was more than 130 and she was given IV Solu-Medrol for 3 days and she had drastic improvement in the last dose was this past Thursday but on Thursday she had dowel worsening of her headache and visual disturbance. Most recent ESR is normal as well as CRP is normal. Patient is tangential on providing history. Headache with visual disturbance rule out temporal arteritis. Most recent ESR CRP is normal. Prior ESR was 130 and has received IV steroids. Unsure if there is other condition contributing to her elevated ESR besides temporal arteritis History of jaw pain for the last 6 years. History of Raynaud's History of fibromyalgia History a chronic history of left hip and knee pain History of Osteoarthritis Plan: Pending MRI of the brain with and without as well as MRA of the head Because of low normal vitamin B12 337 I start the patient on vitamin B-12 1000 g daily. Recommend the repeat level within 4 weeks as an outpatient and if it's I normal was supratherapeutic then the recommend going down on the dose to 500 mg and possibly even stoppable we'll defer the management to the primary team as outpatient. Vascular surgery is on board for possible temporal artery biopsy Ophthalmology team and the rheumatology team are consulted We'll defer the rest of the medical measure the primary team The plan was discussed with the patient and the primary attending We'll continue to follow. Time with Patient: Less than 30
[2023-06-10 14:46] LABS: C-ANCA <1:20 Titer (<1:20)
[2023-06-10 16:03] LABS: Glucose,Whole Blood 131 mg/dL (70-110)
[2023-06-10 19:46] LABS: Glucose,Whole Blood 162 mg/dL (70-110)
[2023-06-10] MEDS: VORTIOXETINE HYDROBROMIDE 20 MG TABLET PO SCH ×2 (20:52→21:03)
[2023-06-11] MEDS: HYDROmorphone 0.5 MG/0.5 ML SYRINGE IVP PRN ×5 (04:00→23:41)
[2023-06-11 06:19] LABS: Glucose,Whole Blood 100 mg/dL (70-110)
[2023-06-11] MEDS: INSULIN ASPART (NovoLOG) 100 UNIT/ML VIAL SQ SCH ×4 (06:30→20:42)
[2023-06-11] MEDS: PANTOPRAZOLE 40 MG TABLET PO SCH (06:36)
[2023-06-11 08:37] LABS: HCT 40.3 % (34.0-46.0); HGB 12.7 gm/dL (11.4-16.0); MCH 30.8 pg (25.0-35.0); MCHC 31.6 g/dL (31.0-37.0); MCV 97.4 fL (80.0-100.0); Mean Platelet Volume 7.6; Platelet Count 261 k/uL (150-450); RBC 4.13 m/uL (3.80-5.40); RDW 12.3 % (11.5-15.5); WBC 11.5 k/uL (3.8-10.6)
[2023-06-11 09:20] LABS: African American GFR (CKD) 86 (>60 ml/min/1.73 sqM); Anion Gap 4 mmol/L; Blood Urea Nitrogen 26 mg/dL (7-17); Calcium 8.2 mg/dL (8.4-10.2); Carbon Dioxide 26 mmol/L (22-30); Chloride 107 mmol/L (98-107); Glucose 77 mg/dL (74-99); Non-African American GFR(CKD) 75 (>60 ml/min/1.73 sqM); Potassium 4.1 mmol/L (3.5-5.1); Sodium 137 mmol/L (137-145)
--- NOTE | 2023-06-11 10:39 | MR ---
EXAMINATION TYPE: MR angio head wo con DATE OF EXAM: 06/11/2023 COMPARISON: CT brain 3 days earlier HISTORY: Headache TECHNIQUE: Time of flight images focusing on the [place] were performed without contrast.. 2-D and 3-D postprocessing imaging is performed on independent workstation. FINDINGS: Vertebral arteries have tortuous courses distally but are codominant and intact to the basi lar junction. There are patent bilateral posterior communicating arteries. There is no large vessel o cclusion or aneurysm in the posterior circulation. There is some areas of diminished caliber along th e course of the basilar artery. There is a patent small caliber anterior communicating artery on imag e 106 series 201. No large vessel occlusion or aneurysm in the anterior circulation is seen. IMPRESSION: No focal aneurysm at level of [place].
--- NOTE | 2023-06-11 10:48 | MR ---
EXAMINATION TYPE: MR brain wo/w con DATE OF EXAM: 06/11/2023 10:40 AM CLINICAL INDICATION:Female, 58 years old with history of vision change, headache; COMPARISON: MR Angio head same day, CT brain 06/08/2023. TECHNIQUE: Multi planar, multi sequence imaging was performed through the brain including: T1, T2, In version recovery, susceptibility weighted imaging and gradient echo imaging and Diffusion weighted im aging. The patient was then given intravenous contrast and multi planar, T1 fat-saturation images wer e obtained. IV Contrast: 6 cc Gadavist. FINDINGS: The marroquin-white junctions, ventricular system, basal cisterns appear unremarkable. Diffusion-weighted imaging shows no evidence of restricted diffusion to suggest acute/subacute infarct. Intracranial ar terial flow voids are maintained. Midline structures show no abnormality. Scattered foci of high T2 s ignal intensity are seen within the periventricular white matter. The susceptibility weighted images do not reveal any evidence for micro-hemorrhage. After administration of gadolinium, no abnormal enha ncement is seen. The bone marrow signal is within normal limits. Paranasal sinuses and mastoid air cells: No significant paranasal sinus disease. Visualized orbits: The globes appear symmetrical. Signal intensity of the globes and optic nerves ar e within normal limits. The intraorbital fat appears preserved. Both lacrimal glands are unremarkab le. The extraocular muscles appear symmetric. After administration of contrast, no abnormal enhanceme nt is seen. IMPRESSION: 1.No evidence of intraorbital mass or significant abnormality. No evidence of intracranial mass, acut e/subacute infarct, or abnormal enhancement. 2. Nonspecific white matter changes, likely related to small vessel ischemic disease
[2023-06-11 11:39] LABS: Glucose,Whole Blood 92 mg/dL (70-110)
--- NOTE | 2023-06-11 11:40 | P.PN ---
Subjective Progress Note Date: 06/11/23 Principal diagnosis: Headache Patient was seen and examined for follow-up. She states she still has bilateral jaw pain, headache worse on left than right. Denies any visual disturbances or any other focal deficits. She was seen yesterday reported labile rheumatology Dr. Porter. Solu-Medrol was discontinued with a recommendation for temporal artery biopsy. Patient underwent a brain MRI and MRA. Brain MRI reports no evidence of intra-orbital mass or significant abnormality. No evidence of intracranial mass, acute/subacute infarct or abnormal enhancement. Nonspecific white matter changes likely related to small vessel ischemic disease. MRA of head reports no focal aneurysm at level of [place] of [place]. Objective - Vital Signs Vital signs: Vital Signs Temp 96.2 F L 06/11/23 08:00 Pulse 79 06/11/23 08:00 Resp 16 06/11/23 08:00 BP 82/52 06/11/23 08:00 Pulse Ox 96 06/11/23 08:00 FiO2 Intake & Output 06/10/23 06/11/23 06/11/23 18:59 06:59 18:59 Intake Total 950 522 320 Balance 950 522 320 Weight 58.967 kg Intake: Intake, IV Titration 250 300 Amount Sodium Chloride 0.9% 1, 300 000 ml @ 75 mls/hr IV . [id number] [facility] Rx#:[id number] methylPREDNISolone SOD 250 SUCCIN 1,000 mg In Sodium Chloride 0.9% 250 ml @ 250 mls/hr IVPB Q24H [facility] Rx#:[id number] Oral 700 222 320 Other: Voiding Method Toilet Toilet Toilet # Voids 2 - Exam General appearance: The patient is alert, oriented, appears in no acute distress. HET: Head is normocephalic and atraumatic. Pupils are equal and reactive. Neck: Supple. Abdomen: Soft, nondistended. Extremities: Normal skin color and turgor. Neurological: No focal deficits. Alert and oriented 3. - Labs CBC & Chem 7: 06/11/23 07:59 06/11/23 07:59 Labs: Abnormal Lab Results - Last 24 Hours (Table) 06/10/23 06/10/23 06/11/23 Range/Units 16:02 19:45 07:59 WBC 11.5 H (3.8-10.6) k/uL BUN (7-17) mg/dL POC Glucose (mg/dL) 131 H 162 H (70-110) mg/dL Calcium (8.4-10.2) mg/dL 06/11/23 Range/Units 07:59 WBC (3.8-10.6) k/uL BUN 26 H (7-17) mg/dL POC Glucose (mg/dL) (70-110) mg/dL Calcium 8.2 L (8.4-10.2) mg/dL Assessment and Plan Assessment: 1. Headache, outpatient elevated sed rate 2. Right eye visual changes 3. Chronic Generalized upper and lower extremity weakness 4. Chronic jaw pain 5. Fibro-myalgia 6. Degenerative disc disease 7. Raynaud's disease 8. Cataracts Plan: 1. Carotid duplex ordered and reviewed. No significant stenosis 2. Neurology consulted, appreciate their recommendations 3. Rheumatology has seen and evaluated patient, recommending temporal artery biopsy as soon as possible. They discontinued Solu-Medrol. 4. Nothing by mouth after midnight 5. Patient is scheduled for temporal artery biopsy tomorrow with Dr. Garland. Patient had follow-up with PCP or Dr. Porter for biopsy results The impression and plan of care has been dictated as directed. Dr. Jean I performed a history and examination of this patient, discussed the same with the dictator. I agree with the dictator's note ,documented as a scribe. Any ad ditional findings or plans will be noted.
[2023-06-11] MEDS: NICOTINE 14MG/24HR PATCH TRANSDERM SCH (11:55)
[2023-06-11] MEDS: cycloSPORINE 0.05% OPHTH 0.4 ML DROPERETTE BOTH EYES SCH ×2 (11:55→22:01)
[2023-06-11] MEDS: CYANOCOBALAMIN 500 MCG TAB PO SCH (11:56)
[2023-06-11] MEDS: LORazepam 0.5 MG TAB PO SCH ×3 (11:56→23:41)
[2023-06-11] MEDS: MULTIVITAMINS, THERA 1 EACH TAB PO SCH (11:57)
[2023-06-11] MEDS: METOPROLOL SUCCINATE (ER) 25 MG TAB.ER.24H PO SCH (12:01)
[2023-06-11] MEDS: NON FORMULARY DRUG (Dextroamphetamine/Amphetamine [Adderall] 30 MG Tablet) PO SCH ×2 (12:40→20:23)
[2023-06-11] MEDS: SODIUM CHLORIDE 0.9% 1,000 ML IV SCH (12:41)
[2023-06-11 16:32] LABS: Glucose,Whole Blood 102 mg/dL (70-110)
[2023-06-11] MEDS: VORTIOXETINE HYDROBROMIDE 20 MG TABLET PO SCH (20:24)
[2023-06-11 20:31] LABS: Glucose,Whole Blood 94 mg/dL (70-110)
--- NOTE | 2023-06-11 20:32 | P.PN ---
Subjective Progress Note Date: 06/11/23 (delayed charting seen at 10 am) Patient is a 58-year-old female recently diagnosed with temporal arteritis who received 3 doses of Solu-Medrol 1000 milligrams IV piggyback on 03/03 through 03/05, fibromyalgia, rhinoscopy disease, cataracts, spinal stenosis, and multiple other comorbid conditions who presented to the ER with complaint of headache, diffuse muscle weakness, jaw pain, and intermittent visual changes. She was sent in by Dr. Sheppard after she had recurrence of some of her symptoms after completion Solu-Medrol. In the ER she underwent an extensive evaluation. She was hypertensive on arrival with a blood pressure 183/122. Laboratory analysis included CBC, coags, and CMP all of which were unremarkable. Arrangements were made for admission with consultation to vascular surgery, rheumatology, and ophthalmology. She was started on Solu-Medrol thousand milligrams IV piggyback. She was seen by rheumatology who recommended stopping IV steroids and proceeding with temporal artery biopsy with out patient follow-up. Patient seen and examined at bedside. She complains of having a lot of fibromyalgia-type feelings today, as well as feeling as though her breathing is catching in her lungs but it is not choking and she is unsure how to describe it. She also continues to complain of headache. She has multiple complaints. Vital signs reviewed General: nontoxic, no distress, appears at stated age Cardiovascular: S1S2 reg, no murmur, positive posterior tibial pulse bilateral, Lungs: CTA bilateral, no rhonchi, no rales , no accessory muscle use Abdominal: soft, nontender to palpation, no guarding, no appreciable organomegaly Ext: no gross muscle atrophy, no edema b/l lower extremities, no contractures Neuro: CN II-XI grossly intact, no focal neuro deficits Psych: Alert, oriented, appropriate affect Assessment/Plan: Headache, visual disturbance, difficulty with concentration, myalgias -- concerns for vasculitis -Case discussed with neurology- await MRI and MRA Brain - Out patient ESR prior to steroids was >130, but CRP was less than 0.05 -Check ASA, rheumatoid factor, ANCA, aldose- negative - creatinine kinase 27 -Case discussed with vascular surgery physician and nurse practitioner. Plan will be for temporal artery biopsy in the afternoon on 07/13. - Outpatient rheumatolgy follow-up -Await ophthalmology consultation -Completed Solu-Medrol 1000 mg IV X 3 days -Continue with Dilaudid 0.5 mg IV every 3 hours when necessary pain. Monitor for sedation and decreased respiratory status - neuro note reviewed and recommends B12 injections Hyperglycemia secondary to high-dose steroids - A1C normal -S sliding scale insulin - follow BS Chronic: Cataracts Fibromyalgia Raynauds' disease Chronic left lower extremity weakness Spinal stenosis Current Imaging: MRA brain-no focal aneurysm with levels [place] of [place] MRI brain-no evidence of intraorbital mass or significant abnormality no evidence of acute or subacute infarct, nonspecific white matter ischemic changes Hospital course: CT head: No acute intracranial process Carotid Doppler-no significant hemodynamic stenosis bilaterally Data Review: -Labs reviewed from today include CBC and basic metabolic profile and hemoglobin A1c remarkable for white blood cell count 11.5, A1c 5.7, BUN 26, creatinine 8.2 DVT prophylaxis: Heparin Discussed with: Neurology Anticipated discharge date: Pending Clinical Course Anticipated discharge place: Pending Clinical Course This dictation was prepared using [employer] voice recognition software. Though every attempt is made to correct errors during dictation some may still exist. Objective - Vital Signs Vital signs: Vital Signs Temp 98.0 F 06/11/23 20:05 Pulse 102 H 06/11/23 20:05 Resp 16 06/11/23 20:05 BP 122/83 06/11/23 20:05 Pulse Ox 98 06/11/23 20:05 FiO2 Intake & Output 06/11/23 06/11/23 06/12/23 06:59 18:59 06:59 Intake Total 522 1100 Balance 522 1100 Intake: Intake, IV Titration 300 300 Amount Sodium Chloride 0.9% 1, 300 300 000 ml @ 75 mls/hr IV . [id number] [facility] Rx#:[id number] Oral 222 800 Other: Voiding Method Toilet Toilet # Voids 2 - Labs CBC & Chem 7: 06/11/23 07:59 06/11/23 07:59 Labs: Abnormal Lab Results - Last 24 Hours (Table) 06/11/23 06/11/23 Range/Units 07:59 07:59 WBC 11.5 H (3.8-10.6) k/uL BUN 26 H (7-17) mg/dL Calcium 8.2 L (8.4-10.2) mg/dL
[2023-06-12] MEDS: HYDROmorphone 0.5 MG/0.5 ML SYRINGE IVP PRN ×4 (04:57→18:04)
[2023-06-12] MEDS: SODIUM CHLORIDE 0.9% 1,000 ML IV SCH ×2 (04:59→20:50)
[2023-06-12 05:53] LABS: Glucose,Whole Blood 80 mg/dL (70-110)
[2023-06-12] MEDS: INSULIN ASPART (NovoLOG) 100 UNIT/ML VIAL SQ SCH ×4 (06:05→20:41)
[2023-06-12] MEDS: PANTOPRAZOLE 40 MG TABLET PO SCH (06:06)
[2023-06-12] MEDS: NICOTINE 14MG/24HR PATCH TRANSDERM SCH (08:04)
[2023-06-12] MEDS: CYANOCOBALAMIN 500 MCG TAB PO SCH (08:05)
[2023-06-12] MEDS: cycloSPORINE 0.05% OPHTH 0.4 ML DROPERETTE BOTH EYES SCH ×2 (08:05→20:46)
[2023-06-12] MEDS: LORazepam 0.5 MG TAB PO SCH ×3 (08:05→20:46)
[2023-06-12] MEDS: MULTIVITAMINS, THERA 1 EACH TAB PO SCH (08:05)
[2023-06-12] MEDS: METOPROLOL SUCCINATE (ER) 25 MG TAB.ER.24H PO SCH (08:05)
[2023-06-12] MEDS: NON FORMULARY DRUG (Dextroamphetamine/Amphetamine [Adderall] 30 MG Tablet) PO SCH (11:01)
[2023-06-12 12:00] LABS: Glucose,Whole Blood 75 mg/dL (70-110)
--- NOTE | 2023-06-12 12:24 | P.PN ---
Subjective Progress Note Date: 06/12/23 On follow-up with the patient she feels about the same. She continues to have diffuse headache and she feels as 6-7 out of 10. She has generalized weakness. Denies of any new neurological issues. She is pending to have temporal artery biopsy later today. Objective - Vital Signs Vital signs: Vital Signs Temp 98.1 F 06/12/23 07:47 Pulse 68 06/12/23 07:47 Resp 15 06/12/23 07:47 BP 127/80 06/12/23 07:47 Pulse Ox 98 06/12/23 08:37 FiO2 21 06/12/23 08:37 Intake & Output 06/11/23 06/12/23 06/12/23 18:59 06:59 18:59 Intake Total 1100 500 0 Balance 1100 500 0 Weight 58.967 kg Intake: Intake, IV Titration 300 500 Amount Sodium Chloride 0.9% 1, 300 500 000 ml @ 75 mls/hr IV . [id number] [facility] Rx#:[id number] Oral 800 0 Other: Voiding Method Toilet Toilet Toilet # Voids 2 - Exam GENERAL: The patient is lying in bed and is not in acute distress. NEUROLOGICAL: Higher mental function: The patient is awake, alert, oriented to self, place and time. Patient is following commands. No aphasia and no neglect. Cranial nerves: The pupils are round, equal and reactive to light and accommodation. Visual sexton are full to confrontation throughout. Extraocular movement is intact no nystagmus is noted. Facial sensation is normal to touch throughout. The facial strength is normal throughout. Hearing is normal bilaterally to hand rub. Tongue is midline and moved [id number] without any difficulty. No dysarthria is noted. Shoulder shrug is normal bilaterally. Motor: The strength is 5 over 5 throughout uppers and right lower is 5/5. Left lower is deferred because of chronic left hip and knee pain. Normal tone and bulk. Cerebellum: Normal finger to nose bilaterally. Sensation: Sensation is inconsistent at times she feels its field investigator touch on the right than the left but again it was inconsistent upon examination Reflexes (right/left): 2 positive throughout Plantars are downgoing bilaterally. Some of the workup during his hospital visit consisted of Most recent ESR is 6. CBC with differential is unremarkable CK level is 29 and a repeat is 27 CRP is less than 0.5 TSH is 0.266, free T4 is 1.08 and the free T4 reflex I is 1.29. Vitamin B12 was 337 Serum folate is 30.7. Aldolase level is 4.0 COSME is negative P and C-ANCA are <1:20 Hemoglobin A1c is 5.7. Rheumatoid factor was less than 15 Calcium is 8.9, serum glucose is 85, sodium is 136. CT of the head is reported as no acute intracranial process. I personally reviewed the CT of the head and I agree with the report. Carotid duplex is reported as less than 50% stenosis of bilateral carotid bifurcation. MRI of the brain is reported as no evidence of an intraorbital mass or significant abnormality. No evidence of intracranial mass, acute subacute infarct or abnormal enhancement. Nonspecific white matter changes likely related to small vessel ischemic disease. MRA of the head is reported as no focal aneurysm at the level [place] of [place]. - Labs CBC & Chem 7: 06/11/23 07:59 06/11/23 07:59 Assessment and Plan Assessment: This is a 58-year-old woman with history of Raynaud's, fibromyalgia, cataract, who has been having jaw pain bilaterally for the last 6 years but worse in the last 6 weeks associate with the vision changes nausea. On 06/03/2023 the areas are was more than 130 and she was given IV Solu-Medrol for 3 days and she had drastic improvement in the last dose was this past Thursday but on Thursday she had dowel worsening of her headache and visual disturbance. Most recent ESR is normal as well as CRP is normal. Patient is tangential on providing history. Headache with visual disturbance rule out temporal arteritis. Most recent ESR CRP is normal. Prior ESR was 130 and has received IV steroids. Unsure if there is other condition contributing to her elevated ESR besides temporal arteritis History of jaw pain for the last 6 years. History of Raynaud's History of fibromyalgia History a chronic history of left hip and knee pain History of Osteoarthritis Plan: MRI of the brain with and without as well as MRA of the head are negative. Because of low normal vitamin B12 337 I start the patient on vitamin B-12 1000 g daily. Recommend the repeat level within 4 weeks as an outpatient and if it's normal or supratherapeutic then the recommend going down on the dose to 500 mg or even stopping it but will defer the management to the primary team as outpatient. Vascular surgery is on board for temporal artery biopsy and scheduled for likely today. Ophthalmology team and the rheumatology team are consulted We'll defer the rest of the medical measure the primary team The plan was discussed with the patient. We'll continue to follow. Dr. Hooker will start neurology service tomorrow a.m. Time with Patient: Less than 30
[2023-06-12] MEDS ORDERED: LACTATED RINGERS 1,000 ML IV ONE (15:05)
[2023-06-12] MEDS ORDERED: PROPOFOL 10 MG/ML 20 ML VIAL IV ONE (16:06)
[2023-06-12] MEDS ORDERED: fentaNYL (PF) 50 MCG/ML 2 ML AMP ONE (16:06)
[2023-06-12] MEDS ORDERED: MIDAZOLAM 2 MG/2 ML VIAL ONE (16:06)
[2023-06-12] MEDS ORDERED: LIDOCAINE 1% INJ 10MG/ML (20 ML MDV) ONE (16:06)
[2023-06-12] MEDS ORDERED: BACITRACIN OINT 1 EACH PACKET TOPICAL ONE (16:37)
--- NOTE | 2023-06-12 17:03 | P.OP ---
Date of Procedure: 06/12/23 Description of Procedure: Preoperative diagnosis: Headaches, rule out temporal arteritis Postoperative diagnosis: Same Procedure: Left temporal artery biopsy Surgeon: Lorraine Garland D.O. EBL: Less than 5 mL IV fluids: See anesthesia records Urine output: Not measured Drains: None Complications: None immediately apparent Condition: Stable to recovery Operative indication and findings: Patient is a 58-year-old male who recently began having increasing and worsening headaches along with other complaints. Through the evaluation and workup was recommended undergo temporal artery biopsy. Risks and benefits were discussed. They present for intervention today. Procedure in detail: The patient was taken to the operative suite and placed in supine position. The side of the face was prepped and draped in usual sterile fashion. A preprocedure timeout was performed, all parties are in agreement. The area of the greatest pulse was anesthetized at the temporal region. Incision was made and carried onto the subcuticular tissue using electrocautery. The artery was identified. It was dissected free proximally and distally. It was ligated with 3-0 silk ties. The 1.5 cm portion of the artery was excised and sent for pathology. The area was then irrigated. Hemostasis was achieved electrocautery. The deep dermal tissues were reapproximated with interrupted sutures of 3-0 Vicryl. The skin was reprepped with running 5-0 Monocryl in subcu cuticular fashion. Antibiotic ointment was placed
[2023-06-12 17:48] LABS: Glucose,Whole Blood 71 mg/dL (70-110)
--- NOTE | 2023-06-12 19:20 | P.PN ---
Subjective Progress Note Date: 06/12/23 (delayed charting seen at 1045) Patient is a 58-year-old female recently diagnosed with temporal arteritis who received 3 doses of Solu-Medrol 1000 milligrams IV piggyback on 03/03 through 03/05, fibromyalgia, rhinoscopy disease, cataracts, spinal stenosis, and multiple other comorbid conditions who presented to the ER with complaint of headache, diffuse muscle weakness, jaw pain, and intermittent visual changes. She was sent in by Dr. Sheppard after she had recurrence of some of her symptoms after completion Solu-Medrol. In the ER she underwent an extensive evaluation. She was hypertensive on arrival with a blood pressure 183/122. Laboratory analysis included CBC, coags, and CMP all of which were unremarkable. Arrangements were made for admission with consultation to vascular surgery, rheumatology, and ophthalmology. She was started on Solu-Medrol thousand milligrams IV piggyback. She was seen by rheumatology who recommended stopping IV steroids and proceeding with temporal artery biopsy with out patient follow-up. She again today talking about the bone growth in her mouth. I reassured her that she needs to follow with a dentist as steroids should not cause rapid bone resorption. I did discuss with her that she will be able to go home after her temporal artery biopsy to have further outpatient evaluation with Dr. Porter and a primary care physician. Vital signs reviewed General: nontoxic, no distress, appears at stated age Cardiovascular: S1S2 reg, no murmur, positive posterior tibial pulse bilateral, Lungs: CTA bilateral, no rhonchi, no rales , no accessory muscle use Abdominal: soft, nontender to palpation, no guarding, no appreciable organomegaly Ext: no gross muscle atrophy, no edema b/l lower extremities, no contractures Neuro: CN II-XI grossly intact, no focal neuro deficits Psych: Alert, oriented, appropriate affect Assessment/Plan: Headache, visual disturbance, difficulty with concentration, myalgias -- concerns for vasculitis - case discussed with Dr. Isbell. Patient has undergone an extensive evaluation. Vasculitis has been eliminated with a negative rheumatoid factor, COSME, ANCA. Normal ESR and CRP. Normal MRI and MRA of the brain. Normal aldolase and normal creatine kinase. -Case discussed with neurology- await MRI and MRA Brain - ASA, rheumatoid factor, ANCA, aldose- negative - creatinine kinase 27 - Outpatient rheumatolgy follow-up -Completed Solu-Medrol 1000 mg IV X 3 days -d/c dilaudid and start norco 5/325 mg q 6 hours prn pain - neuro note reviewed and recommends B12 supplementation Hyperglycemia secondary to high-dose steroids - A1C normal - Sliding scale insulin - follow BS Chronic: Cataracts Fibromyalgia Raynauds' disease Chronic left lower extremity weakness Spinal stenosis Current Imaging: none new Hospital course: CT head: No acute intracranial process Carotid Doppler-no significant hemodynamic stenosis bilaterally MRA brain-no focal aneurysm with levels [place] of [place] MRI brain-no evidence of intraorbital mass or significant abnormality no evidence of acute or subacute infarct, nonspecific white matter ischemic changes Data Review: -Labs reviewed from today include CBC and basic metabolic profile and hemoglobin A1c remarkable for white blood cell count 11.5, A1c 5.7, BUN 26, creatinine 8.2 DVT prophylaxis: Heparin Discussed with: Neurology Anticipated discharge date: Pending Clinical Course Anticipated discharge place: Pending Clinical Course This dictation was prepared using [employer] voice recognition software. Though every attempt is made to correct errors during dictation some may still exist. Objective - Vital Signs Vital signs: Vital Signs Temp 98.0 F 06/12/23 17:56 Pulse 77 06/12/23 17:56 Resp 16 06/12/23 17:56 BP 160/85 06/12/23 17:56 Pulse Ox 100 06/12/23 17:56 FiO2 21 06/12/23 08:37 Intake & Output 06/12/23 06/12/23 06/13/23 06:59 18:59 06:59 Intake Total 500 1180 Output Total 5 Balance 500 1175 Weight 58.967 kg Intake: IV 1000 Intake, IV Titration 500 Amount Sodium Chloride 0.9% 1, 500 000 ml @ 75 mls/hr IV . [id number] TERRA Rx#:[id number] Oral 180 Output: Estimated Blood Loss 5 Other: Voiding Method Toilet Toilet # Voids 2 1 - Labs CBC & Chem 7: 06/11/23 07:59 06/11/23 07:59
[2023-06-12 20:24] LABS: Glucose,Whole Blood 146 mg/dL (70-110)
[2023-06-12] MEDS: VORTIOXETINE HYDROBROMIDE 20 MG TABLET PO SCH ×2 (20:45→20:48)
[2023-06-12] MEDS: HYDROcodone/APAP 5-325MG 1 EACH TAB PO PRN (20:46)
[2023-06-13] MEDS: HYDROcodone/APAP 5-325MG 1 EACH TAB PO PRN ×2 (02:19→08:49)
[2023-06-13 06:21] LABS: Glucose,Whole Blood 74 mg/dL (70-110)
[2023-06-13] MEDS: INSULIN ASPART (NovoLOG) 100 UNIT/ML VIAL SQ SCH (06:42)
[2023-06-13] MEDS: PANTOPRAZOLE 40 MG TABLET PO SCH (06:47)
[2023-06-13] MEDS: METOPROLOL SUCCINATE (ER) 25 MG TAB.ER.24H PO SCH (08:48)
[2023-06-13] MEDS: CYANOCOBALAMIN 500 MCG TAB PO SCH (08:48)
[2023-06-13] MEDS: LORazepam 0.5 MG TAB PO SCH (08:48)
[2023-06-13] MEDS: MULTIVITAMINS, THERA 1 EACH TAB PO SCH (08:48)
[2023-06-13 09:03] VITALS: BP 169/91; PULSE 81; RESP 20; TEMP 98.6
--- NOTE | 2023-06-13 09:08 | P.PN ---
Subjective Progress Note Date: 06/13/23 Principal diagnosis: Status post left temporal artery biopsy. Patient is concerned about a complaint of perioral numbness and "bubbling" from her mouth. She also is concerned about bleeding from her wound. Objective - Vital Signs Vital signs: Vital Signs Temp 98.6 F 06/13/23 08:40 Pulse 81 06/13/23 08:40 Resp 20 06/13/23 08:40 BP 169/91 06/13/23 08:40 Pulse Ox 97 06/13/23 08:40 FiO2 21 06/12/23 08:37 Intake & Output 06/12/23 06/13/23 06/13/23 18:59 06:59 18:59 Intake Total 1180 740 Output Total 5 Balance 1175 740 Weight 58.967 kg Intake: IV 1000 Oral 180 740 Output: Estimated Blood Loss 5 Other: Voiding Method Toilet Toilet # Voids 1 1 - Exam Patient is awake and alert. Oral cavity appears unremarkable. Tongue is midline. All other cranial nerves are also normally functional. Surgical wounds clean, dry and unremarkable. The patient did show me her pillow which had what appeared to be a single drop of blood and this is what causes her concern. - Labs CBC & Chem 7: 06/11/23 07:59 06/11/23 07:59 Labs: Abnormal Lab Results - Last 24 Hours (Table) 06/12/23 Range/Units 20:23 POC Glucose (mg/dL) 146 H (70-110) mg/dL Assessment and Plan Assessment: 1: Postop day #1 status post left temporal artery biopsy. The wound appears unremarkable. There is no drainage/hematoma or other concern at this time. 2: I indicated to her that from a surgical standpoint all appears well however she should discuss her other complaints with the other attending physicians. Currently I see no neurologic deficit and her oral cavity appears unremarkable to me. Plan: Patient is surgically stable and can be dismissed from a surgical standpoint when cleared by all other attending services/physicians. I indicated the patient is free to shower over her wound and wash her hair she chooses. Office follow-up in [address] Garland. Time with Patient: Less than 30
[2023-06-13] MEDS ORDERED: predniSONE 20 MG TAB PO STA (09:49)
[2023-06-13] MEDS ORDERED: predniSONE 50 MG TAB PO STA (09:55)
[2023-06-13] MEDS: NICOTINE 14MG/24HR PATCH TRANSDERM SCH (10:06)
[2023-06-13] MEDS: cycloSPORINE 0.05% OPHTH 0.4 ML DROPERETTE BOTH EYES SCH (11:03)
--- NOTE | 2023-06-13 17:49 | P.DS ---
Providers Date of admission: 06/08/23 20:18 Expected date of discharge: 06/13/23 Attending physician: Luis Mcdowell MD Consults: 06/08/23 20:18 Consult Physician Routine Consulting Provider: Mohan Jean Consult Reason/Comments: Temporal headache Do you want consulting provider notified?: Yes 06/08/23 22:58 Consult Physician Urgent Consulting Provider: Ny Sheppard Consult Reason/Comments: Temporal arteritis Do you want consulting provider notified?: Yes Consult Physician Urgent Consulting Provider: Aretha Porter Consult Reason/Comments: Suspected temporal arteritis Do you want consulting provider notified?: Yes 06/09/23 08:21 Consult Physician Routine Consulting Provider: Donny Isbell Consult Reason/Comments: headaches, visual changes, weakness Do you want consulting provider notified?: Yes Primary care physician: Stated None Assessment: Discharge Diagnosis: Headache, visual disturbance concern for temporal artertiis. Hyperglycemia secondary to high-dose steroids Cataracts Fibromyalgia Raynauds' disease Mandibular Maria A Chronic left lower extremity weakness Spinal stenosis Hospital Course: Patient is a 58-year-old female recently diagnosed with temporal arteritis who received 3 doses of Solu-Medrol 1000 milligrams IV piggyback on 03/03 through 03/05, fibromyalgia, rhinoscopy disease, cataracts, spinal stenosis, and multiple other comorbid conditions who presented to the ER with complaint of headache, diffuse muscle weakness, jaw pain, and intermittent visual changes. She was se nt in by Dr. Sheppard after she had recurrence of some of her symptoms after completion Solu-Medrol. In the ER she underwent an extensive evaluation. She was hypertensive on arrival with a blood pressure 183/122. Laboratory analysis included CBC, coags, and CMP all of which were unremarkable. Arrangements were made for admission with consultation to vascular surgery, rheumatology, and ophthalmology. She was started on Solu-Medrol thousand milligrams IV piggyback. She was seen by rheumatology who recommended stopping IV steroids and proceeding with temporal artery biopsy with out patient follow-up. This was completed on 06/12/23 without any immediate postoperative complications. She was determined stable for discharge home. Follow-up: Dr. Porter in 1 week, [facility] to establish primary care physician, verbally told to follow-up with Dr. Garland's office for biopsy results. She was sent home with Prednisone 50 mg daily for the next 7 days. She was also told to find a dentist to follow-up with regarding her Jaw lesions/pain. Patient seen and examined at bedside. She did have some headache after the biopsy which is better now. We discussed that she will need to follow-up with Dr. kaur for further steroid taper and Dr. Garland for biopsy results. I have suggested the [facility] for her for possible primary care physician Vital signs reviewed and stable. General: nontoxic, no distress, appears at stated age Cardiovascular: S1S2 reg, no murmur, positive posterior tibial pulse bilateral, Lungs: CTA bilateral, no rhonchi, no rales , no accessory muscle use Neuro: CN II-XI grossly intact, no focal neuro deficits Psych: Alert, oriented, appropriate affect A total of 32 minutes of time were spent preparing this complex discharge summary. Patient was discharged on 06/13/23. This dictation was prepared using [employer] voice recognition software. Though every attempt is made to correct errors during dictation some may still exist. Patient Condition at Discharge: Stable Plan - Discharge Summary Discharge Rx Participant: No New Discharge Prescriptions: New predniSONE 50 mg PO DAILY #7 tablet Cyanocobalamin [Vitamin B-12] 1,000 mcg PO DAILY tab HYDROcodone/APAP 5-325MG [[place] 5-325] 1 tab PO Q4HR PRN 3 Days #16 tab PRN Reason: Pain Continue ondansetron HCL [Zofran] 8 mg PO TID PRN PRN Reason: Nausea Zolpidem [Ambien] 5 - 10 mg PO HS PRN PRN Reason: SLEEP Omeprazole [PriLOSEC] 40 mg PO DAILY LORazepam [Ativan] 0.5 mg PO TID cycloSPORINE 0.05% OPHTH SOLN [Restasis] 1 applicator BOTH EYES Q12H Metoprolol Succinate [Metoprolol Succinate ER] 25 mg PO DAILY Ketorolac [Toradol] 10 mg PO Q4H PRN PRN Reason: Pain Vortioxetine Hydrobromide [Trintellix] 10 mg PO HS Dextroamphetamine/Amphetamine [Adderall] 30 mg PO BID Diclofenac Sodium [Diclofenac Sodium 1%] 1 applic TOPICAL QID PRN PRN Reason: Pain Multivit-Min/Iron/Folic/Lutein [Centrum Silver Women Tablet] 1 tab PO DAILY Magnesium 250 mg PO DAILY PRN PRN Reason: HIGH BLOOD PRESSURE Discharge Medication List Dextroamphetamine/Amphetamine [Adderall] 30 mg PO BID 06/03/23 [History] LORazepam [Ativan] 0.5 mg PO TID 06/03/23 [History] Omeprazole [PriLOSEC] 40 mg PO DAILY 06/03/23 [History] Zolpidem [Ambien] 5 - 10 mg PO HS PRN 06/03/23 [History] ondansetron HCL [Zofran] 8 mg PO TID PRN 06/03/23 [History] Diclofenac Sodium [Diclofenac Sodium 1%] 1 applic TOPICAL QID PRN 06/08/23 [History] Ketorolac [Toradol] 10 mg PO Q4H PRN 06/08/23 [History] Magnesium 250 mg PO DAILY PRN 06/08/23 [History] Metoprolol Succinate [Metoprolol Succinate ER] 25 mg PO DAILY 06/08/23 [History] Multivit-Min/Iron/Folic/Lutein [Centrum Silver Women Tablet] 1 tab PO DAILY 06/08/23 [History] Vortioxetine Hydrobromide [Trintellix] 10 mg PO HS 06/08/23 [History] cycloSPORINE 0.05% OPHTH SOLN [Restasis] 1 applicator BOTH EYES Q12H 06/08/23 [History] Cyanocobalamin [Vitamin B-12] 1,000 mcg PO DAILY tab 06/12/23 [Rx] HYDROcodone/APAP 5-325MG [Brandon 5-325] 1 tab PO Q4HR PRN 3 Days #16 tab 06/12/23 [Rx] predniSONE 50 mg PO DAILY #7 tablet 06/13/23 [Rx] Follow up Appointment(s)/Referral(s): None,Stated [Primary Care Provider] - 1-2 days [facility] - 1 Week Aretha Porter MD [STAFF PHYSICIAN] - 1 Week Patient Instructions/Handouts: Fibromyalgia (DC), Temporal Arteritis (DC) Discharge Disposition: HOME SELF-CARE
--- NOTE | 2023-06-16 10:31 | P.CONS ---
History of Present Illness - Reason for Consult Consult date: 06/10/23 Past Medical History Past Medical History: Cancer, CVA/TIA, Fibromyalgia, GERD/Reflux, Hypertension, Seizure Disorder Additional Past Medical History / Comment(s): ca lobular ,iterstistial cycstitis, esophitisis, rectalseal prolapsis, DEGENERATIVE DISC DISEASE, RAYNOLD, SPINE ISSUES, left leg fracture, ulcer History of Any Multi-Drug Resistant Organisms: None Reported Past Surgical History: Hysterectomy Additional Past Surgical History / Comment(s): left knee surgery, left leg surgery Past Anesthesia/Blood Transfusion Reactions: No Reported Reaction Smoking Status: Current some day smoker - Past Family History Father Family Medical History: Cancer Medications and Allergies Home Medications Medication Instructions Recorded Confirmed Type Dextroamphetamine/Amphetamine 30 mg PO BID 06/03/23 06/08/23 History [Adderall] LORazepam [Ativan] 0.5 mg PO TID 06/03/23 06/08/23 History Omeprazole [PriLOSEC] 40 mg PO DAILY 06/03/23 06/08/23 History Zolpidem [Ambien] 5 - 10 mg PO HS PRN 06/03/23 06/08/23 History ondansetron HCL [Zofran] 8 mg PO TID PRN 06/03/23 06/08/23 History Diclofenac Sodium [Diclofenac 1 applic TOPICAL QID PRN 06/08/23 06/08/23 History Sodium 1%] Ketorolac [Toradol] 10 mg PO Q4H PRN 06/08/23 06/08/23 History Magnesium 250 mg PO DAILY PRN 06/08/23 06/08/23 History Metoprolol Succinate [Metoprolol 25 mg PO DAILY 06/08/23 06/08/23 History Succinate ER] Multivit-Min/Iron/Folic/Lutein 1 tab PO DAILY 06/08/23 06/08/23 History [Centrum Silver Women Tablet] Vortioxetine Hydrobromide 10 mg PO HS 06/08/23 06/08/23 History [Trintellix] cycloSPORINE 0.05% OPHTH SOLN 1 applicator BOTH EYES Q12H 06/08/23 06/08/23 History [Restasis] Cyanocobalamin [Vitamin B-12] 1,000 mcg PO DAILY tab 06/12/23 Rx HYDROcodone/APAP 5-325MG [[place] 1 tab PO Q4HR PRN 3 Days #16 tab 06/12/23 Rx 5-325] predniSONE 50 mg PO DAILY #7 tablet 06/13/23 Rx Allergies Allergy/AdvReac Type Severity Reaction Status Date / Time gabapentin Allergy Anaphylaxis Verified 06/08/23 21:10 Riikrro-VAS-YsO Reductase Allergy Rash/Hives Verified 06/08/23 21:10 Inhibitor valproic acid [From Depakene] Allergy Anaphylaxis Verified 06/08/23 21:10 Results CBC & Chem 7: 06/11/23 07:59 06/11/23 07:59 Assessment and Plan Plan: Consultation Note - Inpatient Evaluation Patient: Nguyen Plata Date of Consultation: 06/10/2023 Referring Physician: Dr. Sheppard Reason for Consultation: Nguyen Plata was admitted to the hospital on 06/08/2023 through the emergency room with bilateral headaches, worse on the left side. She had previously seen her tawer as an outpatient and, based on her symptoms and a significantly elevated sedimentation rate of greater than 130 on 06/03/2023, was suspected to have giant cell arteritis. She was initially treated with intravenous Solu-Medrol from 06/03/2023 through 06/05/2023 and has been admitted for further evaluation, including a possible temporal artery biopsy, with a consultation from vascular surgeons. The patient also reported a history of lumbar spinal stenosis, fibromyalgia, diffuse muscle weakness, jaw pain, and intermittent visual changes. Neurology has been consulted for further evaluation. History of Present Illness: The patient presented with a worsening condition that started approximately 6 years ago with bilateral jaw pain. She also began experiencing headaches all over her head about 4 to 6 weeks ago. Nguyen reported discussing with her certified surgical technician that she was experiencing pressure over her left eye and a sensation of eye protrusion. She described experiencing darkening of her vision in her right eye, causing temporary vision impairment that resolved spontaneousl y. Additionally, she reported episodes of dysarthria, confusion, and various types of pain. Nguyen experienced significant weight loss of 27 pounds over 8 weeks without any dietary changes. To address her symptoms, she was referred to the [facility] for a 3-day course of steroid infusions starting on 06/03/2023. Following the infusions, her symptoms significantly improved, and she reported feeling like her pre-existing self, with clear-headedness, normal balance, good concentration, regular sleep patterns, and no anxiety. However, her symptoms returned, with the onset of jaw pain and recurring headaches. On one occasion, while standing, she fell backward with a lack of sensation. The patient also described a history of various orthopedic issues, including a knee replacement and an untreated femur fracture, leading to issues with knee stability. Nguyen has had episodes of falling, especially on stairs, but not in a backward direction. She described her left knee giving way in multiple directions. Her medical history also included spinal issues and sclerosis, and she had undergone procedures for shoulder, cervical spine, and thoracic compression fractures. Nguyen reported a complicated medical history, including a history of autoimmune disorders diagnosed by a golf course architect eight years ago. This diagnosis included Raynaud's disease, fibromyalgia, osteoarthritis, and degenerative disc disease. There was also a suspicion of lupus, although lupus-specific tests came back negative. She reported allergies to antipsychotics, antidepressants, and anticonvulsant drugs. To manage her pain, she refrained from taking ibuprofen due to gastritis. The patient also described episodes of discoloration in her legs, with her left leg turning purple and black at the bottom while the right leg exhibited redness and swelling when hanging down. She had previously seen a civil engineering design draftsperson for peptic ulcers, gastritis, irritable bowel syndrome (IBS), and constipation. She was subsequently diagnosed with pseudo-obstruction. Nguyen was referred for suspicion of temporal arteritis. She underwent the 3-day steroid treatment starting on 06/03/2023 and felt significant improvement. However, her symptoms recurred, leading her to the hospital. Neurology has been consulted, and MRI and MRA have been ordered. 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 Neck stiffness was noted, and she had visible surgical scars on her left knee, which she was unable to flex beyond approximately 30 degrees. She also had scars on her left thigh and the outer part of her left knee from previous surgeries. Bilateral temporal artery pulses were normal, and there were no significant signs of tenderness in the temporal areas. Laboratory and Imaging Findings: Labs from 06/03/2023 showed an extremely elevated sedimentation rate of greater than 130 mm/hr but normal CRP. Labs from 06/08/2023 showed an improved sediment ation rate of 6, and CMP findings were fairly normal. A BMP from 06/10/2023 showed elevated glucose at 254 mg/dL and a low TSH of 0.266, with normal free T4, aldolase, vitamin B12, and folate. Rheumatoid factor and COSME tests were negative. Bilateral carotid ultrasound performed on 06/09/2023 indicated less than 50% stenosis of the bilateral carotid bifurcation. A brain CT on 06/08/2023 showed essentially negative results. Vascular surgeon Dr. Mohan Aceves has been consulted for a possible temporal artery biopsy. Discussion: The patient reported a complex medical history and a range of symptoms suggestive of various underlying conditions. The drastic improvement in her symptoms after intravenous Solu-Medrol treatment, followed by a recurrence of her symptoms upon discontinuation of steroids, raises concerns regarding the underlying diagnosis. The initial concern was for giant cell arteritis, given her headache and significantly elevated sedimentation rate. However, further evaluation is necessary to definitively rule out or confirm this diagnosis. The oral steroids may have affected the results of a potential temporal artery biopsy, making it crucial to postpone steroids until after the biopsy. The discussion also emphasized the necessity of the biopsy results to determine the appropriate course of treatment. A review of the labs revealed a normal CRP and negative rheumatoid factor and COSME, reducing the suspicion of other autoimmune conditions. It was also noted that the purple and black discoloration in the left leg is likely due to Raynaud's disease, not giant cell arteritis. Recommendations: The patient should discontinue intravenous steroids and promptly contact the vascular surgeon for scheduling a temporal artery biopsy. After the biopsy, the patient may be discharged and can resume oral steroids if necessary. A prednisone dose of 60 mg orally has been suggested. The patient is scheduled for MRI and MRA, and results will be evaluated for further insights into her condition. The patient should follow up in two weeks at the rheumatology office once the biopsy results are available. Disposition: The patient does not require inpatient care following the biopsy and MRI. Her condition will be further evaluated on an outpatient basis. This consultation has been discussed with the patient, and she is provided with contact information for follow-up. * [Your Name], Hand Sewer Shoes*
--- NOTE | 2023-06-18 12:43 | CDI ---
Documentation Clarification Form Date: 06/18/2023 12:31:50 PM From: Roma Flores Phone: Admit Date: 06/08/2023 08:18:00 PM Patient Name: Nguyen Plata Visit Number: [id number] Discharge Date: 06/13/2023 11:50:00 AM ATTENTION: The Clinical Documentation Specialists (CDI) and [facility] Coding Staff appreciate your assistance in clarifying documentation. Please respond to the clarification below the line at the bottom and electronically sign. The CDI & [facility] Coding staff will review the response and follow-up if needed. Please note: Queries are made part of the Legal Health Record. If you have any questions, please contact the author of this message via ITS. Dr. Luis Mcdowell The final diagnosis of the pathology report states Negative fordiagnostic features of temporalarteritis. Coding guidelines do not allow coding professionals to code based on pathology results; therefore, clarification is requested. History/risk factors: 58yo F, Headache,visual disturbanceconcern for temporal arteritis, hyperglycemiad/t steroids, cataracts, fibromyalgia, Raynauds' disease, mandibular Maria A, chronic LLE weakness, spinal stenosis, Hx CVA, jaw lesions/pain Clinical Indicators: 58-year-old female presents forevaluationofheadachewhich is bilateral but worse on the left. Patient had been diagnosed withgiant cell arteritisby her bottle house pumper Dr. Sheppard, she had an ESR of 1:30 as an outpatient. Treatment: Lefttemporal artery biopsy; IV steroids stopped; Follow-up:Dr. Chan 1 week, [facility] to establish primary care physician, verbally told tofollow-upwith Dr. Garland's office forbiopsy results. She was sent home with Prednisone 50 mg daily for the next 7 days. She was also told to find a dentist tofollow-upwith regarding her Jaw lesions/pain. Please clarify if you agree with the pathology report diagnosis of Negative fordiagnostic features of temporalarteritis: [ ] Yes [ ] No [ ] Other (please specify) [ ] Unable to determine (Template Last Revised: October 2020) MTDD
== END 2023-06-13 11:50 | disposition home or self-care (01) | DRG 54 ==
LOC: EC 18:51 → 3SCARD 20:18
PROVIDERS: ADMIT Internal Medicine; ATTEND Internal Medicine
PROC: 03BT3ZX Excision of Left Temporal Artery, Percutaneous Approach, Diagnostic (ICD-10-PCS; principal; 2023-06-12 15:30)
DX: G44.89 Other headache syndrome (principal); G89.29 Other chronic pain; I10 Essential (primary) hypertension; H53.8 Other visual disturbances; M79.7 Fibromyalgia; H54.61 Unqualified visual loss, right eye, normal vision left eye; R73.9 Hyperglycemia, unspecified; T38.0X5A Adverse effect of glucocorticoids and synthetic analogues, initial encounter; K58.1 Irritable bowel syndrome with constipation; M48.061 Spinal stenosis, lumbar region without neurogenic claudication; I73.00 Raynaud's syndrome without gangrene; H26.9 Unspecified cataract; M47.812 Spondylosis without myelopathy or radiculopathy, cervical region; M48.02 Spinal stenosis, cervical region; M19.90 Unspecified osteoarthritis, unspecified site; R47.1 Dysarthria and anarthria; M62.81 Muscle weakness (generalized); Z96.652 Presence of left artificial knee joint; Z96.642 Presence of left artificial hip joint; Z88.8 Allergy status to other drugs, medicaments and biological substances; Z86.73 Personal history of transient ischemic attack (TIA), and cerebral infarction without residual deficits; Z79.899 Other long term (current) drug therapy; Z91.81 History of falling; Z87.11 Personal history of peptic ulcer disease
CPT/HCPCS: 36415; 70450; 70544; 70553; 80048; 80053; 82085; 82550; 82607; 82746; 83036; 84439; 84443; 84484; 85025; 85027; 85610; 85652; 85730; 86038; 86140; 86255; 86431; 88305; 93005; 93880; 94760; 96361; 96365; 99285